=== PATIENT | male | born 1955 | race Caucasian/White ===

== ENCOUNTER 2021-04-01 05:52 | Inpatient (IN) ==
--- NOTE | 2021-03-18 15:57 | PAT Medication Instructions ---
Medication Instructions Date of Service March 18, 2021 Home Medications diltiazem HCl 90 mg tablet PO BID fluoxetine 40 mg capsule (Prozac) PO Q2D glipizide 5 mg tablet PO BID lisinopril 20 mg tablet PO QAM metformin 500 mg tablet PO BID Continue as directed fluoxetine 40 mg capsule (Prozac) PO Q2D DO NOT take the morning of surgery glipizide 5 mg tablet PO BID lisinopril 20 mg tablet PO QAM metformin 500 mg tablet PO BID Take morning of surgery With a small sip of water, OTHERWISE NOTHING TO EAT OR DRINK AFTER MIDNIGHT: diltiazem HCl 90 mg tablet PO BID Take evening before surgery diltiazem HCl 90 mg tablet PO BID glipizide 5 mg tablet PO BID metformin 500 mg tablet PO BID Other Notes If you have any questions please call us at [phone] or [phone] or [phone] or [phone]
--- NOTE | 2021-03-19 11:52 | Anesthesiology Consultation ---
Date of Service March 19, 2021 Assessment & Plan (1) Encounter for pre-operative examination: Chart Review Chart Review: Acceptable Risk for Surgery (pending surgeon ordered PCP clearance and preop Covid testing ) and Patient seen in Pre Admission Testing - Awaiting surgeon ordered PCP clearance 03/26/21 (will check on BP at appt). Also sent note to PCP regarding patient's kidney function; will await response - Check BSG AM DOS Per PAT appt on 03/19/21, patient denies any recent travel. No known Covid positive contacts or Covid related symptoms. No known Covid infection in the past 90 days. Pt is vaccinated for Covid. Preop Covid testing scheduled 03/28/21= will await results. Educated on importance of self quarantining, social distancing and wearing mask in public both for the patient after Covid testing done Teaching & Discussion Pre-Anesthesia Teaching/Discussion Notes: Instructed NPO after midnight before surgery,except medications with 15 cc of water. Medication instructions provided according to the [facility] guidelines. History Surgery Operation Date: 04/01/21 10:05 Proposed Procedures p L3-S1 Decompression/Fusion, Spinal Cord Monitoring - Ruel Sol DO Height/Weight Height: 6 ft Weight: 96.1 kg Allergies Allergy/AdvReac Type Severity Reaction Status Date / Time No Known Allergies Allergy Verified 03/18/21 15:09 Medications Home Medications Medication Instructions Recorded Confirmed Last Taken diltiazem HCl 90 mg tablet 90 mg PO BID 03/18/21 03/18/21 Unknown fluoxetine 40 mg capsule (Prozac) 40 mg PO Q2D 03/18/21 03/18/21 Unknown glipizide 5 mg tablet 2.5 mg PO BID 03/18/21 03/18/21 Unknown lisinopril 20 mg tablet 20 mg PO QAM 03/18/21 03/18/21 Unknown metformin 500 mg tablet 500 mg PO BID 03/18/21 03/18/21 Unknown Past Medical History Medical History Chronic back pain Depression Diabetes mellitus, type 2 Glucose well controlled Hypertension Exercise / Class Metabolic Activity III < 4 Walking/Shop/Light housework (one flight of stairs - no chest pain or SOB (has to go slow)) Past Surgical History Surgical History History of inguinal hernia repair History of lumbar spinal fusion x2 History of total right knee replacement (TKR) Past Anesthesia History No Hx of Anesthesia Complications and No Family Hx of Anesthesia Complications History of PONV No Hx of PONV and No Hx of Motion Sickness Social History Smoking Status: Current some day smoker tobacco type: cigars Smoking cigarettes per day: ocas Do You Dip or Chew Tobacco: Yes (Advised- 1 can per week ) Hx Alcohol Use: Yes Alcohol type: beer alcohol intake frequency: 0-2 drinks per day (3 beers/day) Hx Substance Use: No substance use type: does not use Review of Systems Snoring- no hx sleep study Patient denies chest pain, shortness of breath at rest, reflux, cough, wheezing, palpitations. No hx of seizures, stroke, IN. No hx of blood clots or blood transfusions Physical Exam Vital Signs VITALS BP 180/102 (pt asymptomatic- educated on warning signs of IN/CVA and to go to ER; has follow up clearance appt with PCP 03/26/21) P 77 TEMP 98.3 SP02 96% RESP 16 Constitutional no acute distress ENMT Mouth: no TMJ clicking Thyromental Distance: > or= 3.5 Finger Breadths (4.0) Mallampati Class: II Missing molars Neck + limited neck extension (significant ) Respiratory normal respiratory effort; no respiratory distress Auscultation: lungs clear to auscultation bilaterally; no wheezes Cardiovascular Rate/Rhythm: regular rate and regular rhythm Heart Sounds: no murmur Vessels: no carotid bruit Musculoskeletal Spine: no pain with cervical ROM Extremities: extremities normal to inspection Psychiatric Orientation: alert Lab Results Anesthesia Preop Results Results Anesthesia Widget: WBC 9.13 K/uL (4.8-10.8) 03/19/21 Hgb 16.8 g/dL (14.0-18.0) 03/19/21 Hct 48.6 % (42-52) 03/19/21 Plt 206 K/uL (130-400) 03/19/21 Na 136 mmol/L (136-145) 03/19/21 K 5.1 mmol/L (3.5-5.1) 03/19/21 Cl 105 mmol/L (98-107) 03/19/21 CO2 25 mmol/L (21-32) 03/19/21 BUN 20 mg/dl (7-18) H 03/19/21 Creat 1.75 mg/dl (0.6-1.4) H 03/19/21 Glucose Level 154 mg/dl (70-99) H 03/19/21 PT 10.5 Seconds (9.0-12.0) 03/19/21 PTT 26.8 Seconds (21.0-31.0) 03/19/21 INR 1.0 (0.9-1.1) 03/19/21 HA1c 8.9 % (4.5-5.6) H 03/19/21 Urine Color Dark Yellow 03/19/21 Urine Appearance Clear (Clear) 03/19/21 Urine pH 5.5 (4.5-7.5) 03/19/21 Urine Specific [place] 1.023 (1.000-1.030) 03/19/21 Urine Protein 3+ (Negative) H 03/19/21 Urine Glucose (UA) Trace (Negative) H 03/19/21 Urine Ketones 1+ (Negative) H 03/19/21 Urine Blood Trace (Negative) H 03/19/21 Urine Nitrite Positive (Negative) A 03/19/21 Urine Bilirubin 1+ (Negative) H 03/19/21 Urine Urobilinogen Negative (Negative) 03/19/21 Urine Leukocyte Esterase 1+ (Negative) H 03/19/21 Urine WBC (Auto) >30 /hpf (0-5) H 03/19/21 Urine RBC (Auto) 0-4 /hpf (0-4) 03/19/21 Urine Hyaline Casts (Auto) 5-10 /lpf (0-5) H 03/19/21 Urine Epithelial Cells (Auto) 5-10 /lpf (0-5) H 03/19/21 Urine Bacteria (Auto) 1+ (Negative) H 03/19/21 Urine Yeast Budding (None Prsent) A 03/19/21 Blood Type O Positive 03/19/21 Antibody Screen NEGATIVE 03/19/21 Lab Comments: Surgeon's office informed of abnormal UA and elevated Hgb A1C - will leave to surgeon's discretion how to proceed Testing Electrocardiogram Date: 03/19/21 Findings: + NSR @ (71 bpm) Left anterior fascicular block. Moderate voltage criteria for LVH, may be normal variant. Chest X-Ray Date: 03/19/21 Elevation of the left hemidiaphragm. Atelectasis or scarring at the left base.
[2021-04-01] MEDS ORDERED: ceFAZolin 2000MG 2,000 MG/15 ML SYR IV SCH (06:00)
[2021-04-01] MEDS ORDERED: ACETAMINOPHEN 500 MG TAB PO SCH (06:00)
[2021-04-01] MEDS ORDERED: GABAPENTIN 300 MG CAP PO SCH (06:00)
[2021-04-01] MEDS ORDERED: LR 15ML/HR IV SCH (06:00)
[2021-04-01] MEDS ORDERED: CeleBREX 200 MG CAP PO SCH (06:00)
[2021-04-01] MEDS ORDERED: fentaNYL citrate 100 MCG/2 ML VIAL ONE (06:52)
[2021-04-01] MEDS ORDERED: MIDAZOLAM HCL 1 MG/ML 2ML VIAL ONE (06:52)
[2021-04-01] MEDS ORDERED: BUPIVACAINE 0.5 % 5 MG/1 ML MPF 30ML VIAL ONE (06:57)
[2021-04-01] MEDS ORDERED: EPINEPHrine INJ 1 MG/ML AMP ONE (06:57)
[2021-04-01] MEDS ORDERED: KETAMINE 50 MG/5 ML SYRINGE ONE (06:58)
[2021-04-01] MEDS ORDERED: FLOSEAL HEMOSTATIC MATRIX 10ML TOP ONE (07:26)
[2021-04-01] MEDS ORDERED: ePHEDrine sulfate 50 MG/ML AMP IV PRN (07:27)
[2021-04-01] MEDS ORDERED: HYDROmorphone INJ 2 MG/ML SYR/VIAL IV PRN (07:27)
[2021-04-01] MEDS ORDERED: ONDANSETRON INJ 2 MG/ML 2 ML VIAL IV PRN ×2 (07:27→12:33)
[2021-04-01] MEDS ORDERED: fentaNYL citrate 100 MCG/2 ML VIAL IV PRN (07:27)
[2021-04-01] MEDS ORDERED: PROMETHAZINE HCL 6.25 MG in SODIUM CHLORIDE 0.9% 50 ML IV PRN (07:27)
[2021-04-01] MEDS ORDERED: ATROPINE SULFATE 0.1 MG/ML 10ML SYR IV PRN (07:27)
--- NOTE | 2021-04-01 07:29 | History & Physical Bridge Note ---
Date of Service April 01, 2021 History & Physical Bridge Note I have examined the patient, reviewed the History & Physical and in the interval since the performance of the History & Physical I have noted the following changes of clinical significance: no changes noted
--- NOTE | 2021-04-01 07:31 | History & Physical Report ---
Date of Service April 01, 2021 Assessment & Plan (1) Neurogenic claudication due to lumbar spinal stenosis: Admission and Anticipated Discharge Date Admission Date: L3-S1 decompression fusion History of Present Illness Chief Complaint: Back and bilateral leg pain Primary Care Provider: Eldon Hernandez This is a 65-year-old male who presents with chronic persistent back and bilateral leg pain. After failing course of nonoperative care is here for surgical invention. Allergies Allergy/AdvReac Type Severity Reaction Status Date / Time No Known Allergies Allergy Verified 04/01/21 06:19 Home Medications Medication Instructions Recorded Confirmed Type diltiazem HCl 90 mg tablet 90 mg PO BID 03/18/21 04/01/21 History fluoxetine 40 mg capsule (Prozac) 40 mg PO Q2D 03/18/21 04/01/21 History glipizide 5 mg tablet 2.5 mg PO BID 03/18/21 04/01/21 History lisinopril 20 mg tablet 20 mg PO QAM 03/18/21 04/01/21 History metformin 500 mg tablet 500 mg PO BID 03/18/21 04/01/21 History Past Med/Surg History Medical History Chronic back pain Depression Diabetes mellitus, type 2 Glucose well controlled Hypertension Surgical History History of inguinal hernia repair History of lumbar spinal fusion x2 History of total right knee replacement (TKR) Social History Smoking Status: Current some day smoker Cigarettes Per Day: ocas; Second Hand Exposure: No; Do You Dip or Chew Tobacco: Yes (Advised- 1 can per week ); Tobacco Cessation Education Requested by Patient: No Hx Alcohol Use: Yes Alcohol type: beer Hx Substance Use: No Preferred Language: Portuguese Communication Ability: Effective Customer Relations Coordinator Required: No Beliefs That Will Affect Care: None Current Living Situation: Spouse Other Information That Helps Us Care for You: No Feels Safe at Home: Yes Safety Concerns: Feels Safe At This Time Physical Exam Physical Exam: Patient is alert and oriented Heart regular in rhythm Lungs clear to auscultation Results & Data ([facility]) Vital Signs (Past 12 Hours) Vital Signs Temp Pulse Resp BP Pulse Ox 04/01/21 06:24 36.6 C 76 20 171/109 H 95
[2021-04-01] MEDS ORDERED: HYDROmorphone INJ 2 MG/ML SYR/VIAL ONE (08:01)
[2021-04-01] MEDS ORDERED: ALBUMIN HUMAN 5% 12.5 GM/250 ML VIAL IV ONE (08:12)
[2021-04-01] MEDS ORDERED: ONDANSETRON INJ 2 MG/ML 2 ML VIAL ONE (08:36)
[2021-04-01] MEDS ORDERED: GLYCOPYRROLATE 0.2 MG/ML VIAL ONE (08:36)
[2021-04-01] MEDS ORDERED: ePHEDrine sulfate 50 MG/ML SYR ONE (08:36)
[2021-04-01] MEDS ORDERED: PROPOFOL IV EMULSION 10 MG/ML 20 ML VIAL IV ONE (08:36)
[2021-04-01] MEDS ORDERED: LIDOCAINE 2% 2 ML VIAL/AMP(20MG/ML) INFIL ONE (08:36)
[2021-04-01] MEDS ORDERED: PHENYLEPHRINE 100MCG/ML 5ML SYR ONE (08:36)
[2021-04-01] MEDS ORDERED: NEOSTIGMINE METHYLSULFATE 1 MG/ML 10ML VIAL ONE (08:36)
[2021-04-01] MEDS ORDERED: LARYING-O-JET KIT (LTA) ONE (08:36)
--- NOTE | 2021-04-01 10:03 | Operative Report ---
Post Operative Report Pre & Post Diagnosis Operation Date: 04/01/21 07:45 Pre-Op Diagnosis: Spinal Stenosis, Lumbar Region with Neurogenic Claudication Post-Op Diagnosis: Spinal Stenosis, Lumbar Region with Neurogenic Claudication I identified the patient and participated in the time-out.: Yes Procedure Operation Date: 04/01/21 07:45 Actual Procedures #1 revision decompression with bilateral medial facetectomy foraminotomies L2-3, L3-4, L4-5 and L5-S1. #2 posterior spinal fusion L3-4, L4-5 L5-S1. #3 placement posterior segmental instrumentation L3-S1. #4 interbody fusion L4-L5 with #5 placement peek cage 10 x 26 mm at L4-L5. #6 placement locally harvested morselized autograft in the posterior lateral gutters. #7 placement infuse collagen sponge, master graft in the posterior lateral gutters and I factor in the interbody space. Surgeon Ruel Sol, Community Support Associate Winifred Marie Estimated Blood Loss 350 Findings Consistent with Post-Op Diagnosis Specimens None Indications This is a 65-year-old male who presents with above-mentioned diagnosis after failing extensive course of nonoperative care is here for surgical intervention. Description of Procedure Patient was met with identified informed consent obtained. Patient was then taken to the operative suite underwent a patient placed in a prone position the Dexter table on top of the Janusz frame. All bony prominences well-padded eyes inspected to ensure no external pressure placed upon the. This point the lumbar spine was prepped and draped in a normal sterile fashion. Sharp dissection with the assistance of Bovie cautery was performed down to and exposing the lamina and transverse processes of L3-L4-L5 and the sacral ala bilaterally. From caudal to cephalad fashion revision complete laminectomy of L5 L4 L3 and partial laminectomy of L2 was performed including bilateral medial facetectomies and foraminotomies addressing severe spinal stenosis. Pedicle screws were then placed in L3-L4-L5 and S1 levels bilaterally with assistance of fluoroscopy and the properly sized trinh placed. By way of a transforamen approach on the left complete discectomy of L4-L5 was performed endplates curetted to subcortical being bone and a 10 x 26 mm peek cage filled with I factor tapped in position. The rods were then locked in final position bilaterally. The transverse processes of L3-L4-L5 and the sacral ala burred to subcortical bleeding bone. Infuse collagen sponge master graft local autograft was placed in the posterior gutters. 15 round KANG drain inserted. The incision was then closed with 1 Vicryl in the fascia 2-0 Vicryl subcutaneously and 4 Monocryl for final skin c losure. Steri-Strip sterile dressings placed. Patient waken taken to PACU stable condition. Please note spinal cord monitoring was utilized at the procedure no changes noted. Lastly Winifred Marie was present at the entire procedure and all the patient positioning complex portions of the surgery and final skin closure. I attest to the content of the Intraoperative Record and any orders documented therein. Any exceptions are noted below.
--- NOTE | 2021-04-01 10:13 | Fluoroscopy Report ---
FL lumbar spine 2-3V CLINICAL HISTORY: L3-S1 DECOMPRESSION/FUSION/INTERBODY COMPARISON STUDY: None. FLUOROSCOPY TIME: 32 seconds. FINDINGS: 2 fluoroscopic spot images of the lumbar spine demonstrate posterior decompression fusion f rom L3 through S1 with pedicle screws and rods. The hardware appears intact. IMPRESSION: Fluoroscopy provided for L3-S1 posterior decompression and fusion ACT 112: Negative or not required by law. Electronically signed by: Jose Downs M.D. 04/01/2021 10:11 AM
--- NOTE | 2021-04-01 11:11 | Anesthesiology Progress Note ---
Date of Service April 01, 2021 Anesthesia Post Procedure Vital Signs Vital Signs: Temp Pulse Pulse Resp BP BP Pulse Ox 04/01/21 11:10 84 14 131/93 94 04/01/21 11:00 81 15 127/99 94 04/01/21 10:50 82 17 181/104 H 91 04/01/21 10:40 87 14 168/129 H 165/107 H 96 04/01/21 10:30 90 14 149/111 H 93 04/01/21 10:22 36.4 C L 90 16 117/61 97 04/01/21 06:24 36.6 C 76 20 171/109 H 95 Transfer of Care Handoff Completed per policy Notes Mental Status: alert / awake / arousable Patient Amnestic to Procedure: Yes Nausea / Vomiting: adequately controlled Pain: adequately controlled Airway Patency, RR, SpO2: stable & adequate BP & HR: stable & adequate Hydration State: stable & adequate Anesthetic Complications: no major complications apparent
[2021-04-01] MEDS ORDERED: HYDROCODONE/ACETAMINOPHEN 7.5/325MG TAB PO PRN (12:33)
[2021-04-01] MEDS ORDERED: hydrOXYzine HCl 25 MG TAB PO PRN (12:33)
[2021-04-01] MEDS ORDERED: oxyCODONE HCL IR 5 MG TAB (IMMEDIATE RELEASE) PO PRN (12:33)
[2021-04-01] MEDS ORDERED: PROMETHAZINE HCL 12.5 MG in SODIUM CHLORIDE 0.9% 50 ML IV PRN (12:33)
[2021-04-01] MEDS ORDERED: DO NOT ADMINISTER PNEUMOCOCCAL VACCINE PRN (12:33)
[2021-04-01] MEDS ORDERED: DO NOT ADMINISTER FLU VACCINE PRN (12:33)
[2021-04-01] MEDS ORDERED: MAGNESIUM HYDROXIDE SUSP 30 ML UDC PO PRN (12:33)
[2021-04-01] MEDS ORDERED: LORazepam 0.5 MG/1 ML VIAL IV PRN (12:33)
[2021-04-01] MEDS ORDERED: HYDROmorphone INJ 1 MG/ML SYRINGE IV PRN (12:33)
[2021-04-01] MEDS ORDERED: bisacodyL 10 MG SUPP PR PRN (12:33)
[2021-04-01] MEDS ORDERED: ALUMINUM/MAGNESIUM SUSP 30 ML UDC PO PRN (12:33)
[2021-04-01] MEDS ORDERED: HYDROmorphone INJ 0.5 MG/0.5 ML SYR IV PRN (12:33)
[2021-04-01] MEDS ORDERED: NALOXONE HCL 0.4 MG/1 ML VIAL/CARP IV PRN (12:33)
[2021-04-01] MEDS ORDERED: ONDANSETRON 4 MG OD TAB PO PRN (12:33)
[2021-04-01] MEDS ORDERED: diphenhydrAMINE Capsule 25 MG CAP PO PRN (12:33)
[2021-04-01] MEDS ORDERED: FAMOTIDINE 20 MG TAB PO PRN (12:33)
[2021-04-01] MEDS ORDERED: PHARMACY GLYCEMIC MGMT CONSULT PRN (12:33)
[2021-04-01] MEDS ORDERED: SOD PHOSPHATE/SOD BIPHOSPHATE ENEMA 132 ML BTL PR PRN (12:33)
[2021-04-01] MEDS ORDERED: HYDROCODONE/ACETAMOPHEN 5/325MG TAB PO PRN (12:33)
[2021-04-01] MEDS ORDERED: METOCLOPRAMIDE HCL INJ 5 MG/ML 2 ML VIAL IV PRN (12:33)
[2021-04-01] MEDS ORDERED: ACETAMINOPHEN 1,000 MG/100 ML VIAL IV PRN (12:33)
--- NOTE | 2021-04-01 12:56 | Hospitalist Consultation ---
Date of Consultation April 01, 2021 Assessment & Plan (1) S/P spinal surgery: This is a 65yo M with a PMH of DM II, depression, HTN and other medical problems listed below who is POD#0 s/p revision decompression with bilateral medial facetectomy foraminotomies L2-3, L3-4, L4-5 and L5-S1 and posterior spinal fusion L3-4, L4-5 L5-S1 by Dr. Sol. POD#0 s/p revision decompression with bilateral medial facetectomy foraminotomies L2-3, L3-4, L4-5 and L5-S1 and posterior spinal fusion L3-4, L4-5 L5-S1 by Dr. Sol Per ortho for pain control, wound care, anticoagulation and activities Monitor H&H (pre-op hgb 16.8, EBL 350ml) Continue incentive spirometry, PT/OT when appropriate (2) Diabetes mellitus, type 2: A1c pending for AM Hold home agents SSI while in-patient Glycemic consult placed by primary service BSG AC HS (3) Hypertension: BP 126/82 Continue diltiazem, lisinopril (4) Alcohol use: Endorses 3-4 beers nightly, last drink yesterday evening Fine tremor of bilateral hands noted on exam Alcohol withdrawal precautions ordered, IV ativan PRN, at risk protocol (5) Depression: Continue Prozac PCP: Dr. Hernandez ([place]) Dispo: Per orthopedic service Patient seen in collaboration with Dr. Barrios. Please see addendum. Thank you for this consultation. We will follow the patient with you during their hospital stay. You can reach a member of the [facility] Hospitalist Team 01/03 via [employer] Text @ "[facility] Hospitalist" role. Supervising Physician Co-Signing Physician Notes Attending Addendum: delayed entry date of service noted above care coordinated with BENJIE Corado please refer to her notes for full details, I agree with her notes patient seen and examined, records reviewed by myself as well on exam, patient seen resting in bed, sitting up states he feels ok overall stood up and walked at the bedside, no issues no chest pain, dyspnea, palpitations, dizziness no other symptoms VS noted and reviewed oriented x3 , not in distress, speaks in sentences with no effort nor accessory muscle use normal rate, regular rhythm, no murmurs clear breath sounds bilaterally non distended, soft, nontender back: dressing in place, no bleeding, discharge drain in place: minimal sanguinous output no bipedal edema, erythema, warmth no neuro deficits ASSESSMENT AND PLAN s/p Back Surgery - (+) hyperglycemia mgt noted below DM 2 - insulin sliding scale - Pharm Glycemic consult HTN - continue usual meds Alcohol Use - PRN Ativan other diagnoses and plan of care as per BENJIE Corado's notes Gregorio Barrios MD History of Present Illness Reason for Consultation: post op medical mgmt Attending Physician: Ruel Sol DO History of Present Illness This is a 65yo M with a PMH of DM II, depression, HTN and other medical problems listed below who is POD#0 s/p revision decompression with bilateral medial facetectomy foraminotomies L2-3, L3-4, L4-5 and L5-S1 and posterior spinal fusion L3-4, L4-5 L5-S1 by Dr. Sol. Feeling well postoperatively. No surgical site pain at this time. Has not yet tried clear liquids. Denies any fever, chills,lightheadedness, headache, chest pain, shortness of breath, nausea, vomiting, abdominal pain, dysuria, diarrhea or constipation. Endorses intermittent cigar use and drinks 3-4 beers nightly. Last drink last evening. Does not over the last day he does not drink. Denies any issues with alcohol withdrawal in the past. Follows with Dr. Hernandez in [place] for primary care. Allergies Allergy/AdvReac Type Severity Reaction Status Date / Time No Known Allergies Allergy Verified 04/01/21 06:19 Home Medications Medication Instructions Recorded Confirmed Type diltiazem HCl 90 mg tablet 90 mg PO BID 03/18/21 04/01/21 History fluoxetine 40 mg capsule (Prozac) 40 mg PO DAILY 03/18/21 04/01/21 History glipizide 5 mg tablet 2.5 mg PO BID 03/18/21 04/01/21 History lisinopril 20 mg tablet 20 mg PO QAM 03/18/21 04/01/21 History metformin 500 mg tablet 500 mg PO BID 03/18/21 04/01/21 History oxycodone 5 mg tablet 5 mg PO Q6H PRN #30 tab 04/02/21 Rx tramadol 50 mg tablet 50 mg PO Q6H PRN #30 tab 04/02/21 Rx Patient History Medical History (Updated 04/02/21 @ 09:18 by Mckenna Jewell PA-C) Depression Diabetes mellitus, type 2 Glucose well controlled Hypertension Surgical History (Updated 04/01/21 @ 13:48 by Sierra Corado PA-C) History of inguinal hernia repair History of lumbar spinal fusion x2 History of total right knee replacement (TKR) Family History Other No family history of cardiovascular disease No family history of diabetes mellitus Social History (Updated 04/01/21 @ 13:50 by Sierra Corado PA-C) Smoking Status: Current some day smoker Tobacco Type: Cigars Cigarettes Per Day: ocas; Second Hand Exposure: No; Do You Dip or Chew Tobacco: Yes (Advised- 1 can per week ); Tobacco Cessation Education Requested by Patient: No Hx Alcohol Use: Yes (3-4 nightly) Alcohol type: beer Alcohol Intake Frequency: 4 or More x per/Week Hx Substance Use: No Preferred Language: Chadian Communication Ability: Effective Production Sanitizer Required: No Beliefs That Will Affect Care: None marital status: Current Living Situation: Spouse Other Information That Helps Us Care for You: No Feels Safe at Home: Yes Safety Concerns: Feels Safe At This Time Assistive Devices: Glasses Review of Systems Review of Systems: At least ten systems reviewed and negative except as noted in the HPI. Physical Exam Physical Exam: General Appearance: WD/WN, vitals as above, NAD, sitting up in bed, pleasant, conversing easily Head: normocephalic, atraumatic Eyes: normal inspection, PERRL, conjunctivae normal, anicteric sclerae ENT: external ear and nose normal, oropharynx normal Neck: normal visual inspection, trachea midline, no thyromegaly Respiratory: normal respiratory effort, lungs clear to auscultation, no wheeze, rales, rhonchi. No accessory muscle use Cardiovascular: regular rate, rhythm, no murmur, normal peripheral pulses, no BLE edema. Vessels: no JVD Abdomen/GI: normal bowel sounds, soft, nontender, no hepatosplenomegaly Extremities/Musculoskeletal: + Lumbar surgical dressing c/d/i. KANG drain visualized. No cyanosis or clubbing, extremities motor strength 5/5 Neurologic: PERRL, EOMI, CN's II-XI intact bilaterally and moves all extremities. + Fine tremor bilateral hands noted Psychiatric: A+Ox3, euthymic affect Skin: no rashes, normal color, warm/dry Results & Data Results & Data ([facility]) Vital Signs (Past 12 Hours) Vital Signs Temp Pulse Pulse Resp BP BP Pulse Ox 04/01/21 12:50 86 16 126/82 93 04/01/21 12:25 82 16 136/84 93 04/01/21 11:55 36.6 C 85 19 124/85 94 04/01/21 11:35 36.4 C L 81 15 135/82 95 04/01/21 11:20 81 14 129/92 93 04/01/21 11:10 84 14 131/93 94 04/01/21 11:00 81 15 127/99 94 04/01/21 10:50 82 17 181/104 H 91 04/01/21 10:40 87 14 168/129 H 165/107 H 96 04/01/21 10:30 90 14 149/111 H 93 04/01/21 10:22 36.4 C L 90 16 117/61 97 04/01/21 06:24 36.6 C 76 20 171/109 H 95 Laboratory Results Short CBC 04/01/21 04/01/21 04/01/21 Range/Units 06:23 06:40 10:23 POC Glucose 223 H 249 H (70-99) mg/dl COVID-19 Eval Order SARS-CoV-2 (PCR) (Negative) Blood Type O Positive Antibody Screen NEGATIVE Crossmatch See Detail 04/01/21 04/01/21 04/01/21 Range/Units 12:12 Unknown Unknown POC Glucose 255 H (70-99) mg/dl COVID-19 Eval Order Covid19 at [facility] SARS-CoV-2 (PCR) NEGATIVE (Negative) Blood Type Antibody Screen Crossmatch Diagnostic Findings Lumbar Spine X-Ray 04/01/21 07:45 [place] lumbar spine 2-3V CLINICAL HISTORY: L3-S1 DECOMPRESSION/FUSION/INTERBODY COMPARISON STUDY: None. FLUOROSCOPY TIME: 32 seconds. FINDINGS: 2 fluoroscopic spot images of the lumbar spine demonstrate posterior decompression fusion from L3 through S1 with pedicle screws and rods. The hardware appears intact. IMPRESSION: Fluoroscopy provided for L3-S1 posterior decompression and fusion ACT 112: Negative or not required by law. Electronically signed by: Jose Downs M.D. 04/01/2021 10:11 AM
[2021-04-01] MEDS: SODIUM CHLORIDE 0.9% 1000ML 1,000 ML IV SCH ×2 (13:20→23:14)
[2021-04-01] MEDS: KETOROLAC TROMETHAMINE 15 MG/ML VIAL IV SCH ×2 (13:21→18:00)
[2021-04-01] MEDS ORDERED: INSULIN GLARGINE SOLOSTAR 100 UNITS/ML 3 ML PEN SC ONE (13:30)
[2021-04-01] MEDS ORDERED: LORazepam 1 MG/2 ML VIAL IV PRN (13:45)
--- NOTE | 2021-04-01 13:53 | Pharmacy Report ---
Pharmacy Glycemic Short Note 2 - Date of Service April 01, 2021 - Glycemic Short BSG Results (Last 24 hours): 04/01/21 04/01/21 04/01/21 06:23 10:23 12:12 POC Glucose 223 H 249 H 255 H OUTPATIENT ANTIDIABETIC REGIMEN: * Metformin 500 mg PO BIDM * Glipizide 2.5 mg PO BIDM * HbA1c = 8.9% (03/19/21) ASSESSMENT: * 65 yo M admitted status post spinal decompression/fusion. Pharmacy has been consulted postoperatively to assist with inpatient glycemic management. Patient is ordered a type 2 diabetic diet post op. As far as I can tell, no perioperative steroids were administered. * Preoperative BSG was 223 mg/dL. Postoperative BSGs were 249 and 255 mg/dL. * Will target a tighter goal range to help with wound healing and prevent postoperative infection. * Starting Novolog based on weight/stress of three. Adding overnight checks for the first night only. * Lantus will be given based on a weight and stress of two to three. Will add a scale this evening for hyperglycemia. PLAN FOR INPATIENT GLYCEMIC CONTROL: * Hold outpatient oral diabetes medications * Basal insulin * Lantus 20 units SC x 1 * Lantus 0-15 units SC BID (see eMAR for more details) * Bolus insulin * NovoLog per scale ACHS or Q6hrs while NPO * Goal Range: Low 110 mg/dL - High 140 mg/dL * Correction Factor: 15 mg/dL/unit * Nutritional / Prandial insulin per carb ratio of 1 unit per 6 grams CHO consumed PLAN FOR DISCHARGE: * HbA1c from earlier this month was 8.9% which is above the goal of less than 7% based on this patient's age and comorbidities. * Recommend increasing Metformin by 500 mg per week until target dose of 1000 mg PO BID is achieved. * Recommend increasing Glipizide to 2.5 mg per week until dose of 5 mg PO BID is achieve. * Continue with lifestyle modifications as well.
[2021-04-01] MEDS: INSULIN ASPART 100 UNITS/ML 3 ML PEN SC SCH ×3 (15:14→21:29)
[2021-04-01] MEDS: ceFAZolin 2000MG 2,000 MG/15 ML SYR IV SCH (15:59)
[2021-04-01] MEDS ORDERED: glipiZIDE 5 MG TAB PO SCH (21:00)
[2021-04-01] MEDS: DOCUSATE SODIUM/SENNA 50/8.6MG TAB PO SCH (21:28)
[2021-04-01] MEDS: dilTIAZem HCL 30 MG TAB PO SCH (21:28)
[2021-04-01] MEDS: INSULIN GLARGINE SOLOSTAR 100 UNITS/ML 3 ML PEN SC SCH (21:29)
[2021-04-02] MEDS: ceFAZolin 2000MG 2,000 MG/15 ML SYR IV SCH (00:06)
[2021-04-02] MEDS: KETOROLAC TROMETHAMINE 15 MG/ML VIAL IV SCH ×2 (00:06→06:12)
[2021-04-02] MEDS: INSULIN ASPART 100 UNITS/ML 3 ML PEN SC SCH ×6 (00:12→21:17)
[2021-04-02] MEDS: POLYETHYLENE (MIRALAX) 17 GM PACK PO SCH ×3 (06:12→17:43)
[2021-04-02 06:42] LABS: Basophils # (auto) 0.03 K/uL (0-0.2); Basophils % (auto) 0.3 %; Eosinophils # (auto) 0.35 K/uL (0-0.5); Eosinophils % (auto) 3.4 %; Hematocrit (blood only) 36.8 % (42-52); Hemoglobin 12.2 g/dL (14.0-18.0); Immature Granulocytes # (auto) 0.03 K/uL (0.00-0.02); Immature Granulocytes % (auto) 0.3 %; Lymphocytes # (auto) 1.63 K/uL (1.2-3.4); Lymphocytes % (auto) 15.9 %; Mean Corpuscular Hemoglobin 30.3 pg (25-34); Mean Corpuscular Hgb Conc 33.2 g/dL (32-36); Mean Corpuscular Volume 91.5 fL (80-100); Mean Platelet Volume 11.2 fL (7.4-10.4); Monocytes % (auto) 12.7 %; Neutrophils % (auto) 67.4 %; Platelet Count 156 K/uL (130-400); RDW Coefficient of Variation 14.7 % (11.5-14.5); RDW Standard Deviation 49.1 fL (36.4-46.3); Red Blood Count 4.02 M/uL (4.7-6.1); White Blood Count 10.24 K/uL (4.8-10.8)
[2021-04-02 07:04] LABS: BUN Creatinine Ratio 9.2 (10-20); Calcium 8.4 mg/dl (8.5-10.1); Creatinine Clr Calc Pharmacy 28.5 ml/min; Est GFR (African American) 23.7 ml/min; Est GFR (Non-African American) 20.4 ml/min; Potassium 4.8 mmol/L (3.5-5.1)
[2021-04-02 07:46] LABS: Estimated Average Glucose 197 mg/dl; Hemoglobin A1C 8.5 % (4.5-5.6)
[2021-04-02] MEDS: traMADol HCL 50 MG TABLET PO PRN ×3 (08:06→21:22)
[2021-04-02] MEDS: dilTIAZem HCL 30 MG TAB PO SCH ×2 (08:07→21:14)
[2021-04-02] MEDS: FLUoxetine HCL 20 MG CAP PO SCH (08:52)
[2021-04-02] MEDS: INSULIN GLARGINE SOLOSTAR 100 UNITS/ML 3 ML PEN SC SCH ×2 (08:53→21:18)
[2021-04-02] MEDS ORDERED: lisinopril 20 MG TAB PO SCH (09:00)
[2021-04-02] MEDS: SODIUM CHLORIDE 0.9% 1000ML 1,000 ML IV SCH ×3 (09:05→17:40)
--- NOTE | 2021-04-02 09:17 | Pharmacy Report ---
Pharmacy Glycemic Short Note 2 - Date of Service April 02, 2021 - Glycemic Short BSG Results (Last 24 hours): 04/01/21 04/01/21 04/01/21 10:23 12:12 17:05 Glucose POC Glucose 249 H 255 H 276 H 04/01/21 04/02/21 04/02/21 20:38 00:11 03:53 Glucose POC Glucose 292 H 222 H 157 H 04/02/21 04/02/21 05:52 08:16 Glucose 138 H POC Glucose 178 H OUTPATIENT ANTIDIABETIC REGIMEN: * Metformin 500 mg PO BIDM * Glipizide 2.5 mg PO BIDM * HbA1c = 8.9% (03/19/21) ASSESSMENT: 04/02: * Daniel received a total of 75 units of insulin yesterday postoperatively. * 35 units basal + 40 units bolus * BSGs were elevated: [phone] mg/dL * Fasting BSG was improved but still above goal range at 178 mg/dL this AM * Will increase basal scale by 15-30% today pending BSGs * No improvement in postprandial BSGs last evening. * Therefore, will tighten carb ratio this morning 04/01: * 65 yo M admitted status post spinal decompression/fusion. Pharmacy has been consulted postoperatively to assist with inpatient glycemic management. Patient is ordered a type 2 diabetic diet post op. As far as I can tell, no perioperative steroids were administered. * Preoperative BSG was 223 mg/dL. Postoperative BSGs were 249 and 255 mg/dL. * Will target a tighter goal range to help with wound healing and prevent postoperative infection. * Starting Novolog based on weight/stress of three. Adding overnight checks for the first night only. * Lantus will be given based on a weight and stress of two to three. Will add a scale this evening for hyperglycemia. PLAN FOR INPATIENT GLYCEMIC CONTROL: * Hold outpatient oral diabetes medications * Basal insulin - increased * Lantus 15-25 units SC BID (see eMAR for more details) * Bolus insulin - tightened CR * NovoLog per scale ACHS or Q6hrs while NPO * Goal Range: Low 110 mg/dL - High 140 mg/dL * Correction Factor: 15 mg/dL/unit * Nutritional / Prandial insulin per carb ratio of 1 unit per 5 grams CHO consumed PLAN FOR DISCHARGE: * HbA1c from earlier this month was 8.9% which is above the goal of less than 7% based on this patient's age and comorbidities. * Recommend increasing Metformin by 500 mg per week until target dose of 1000 mg PO BID is achieved. * Recommend increasing Glipizide to 2.5 mg per week until dose of 5 mg PO BID is achieve. * Continue with lifestyle modifications as well.
--- NOTE | 2021-04-02 09:22 | Hospitalist Progress Note ---
Date of Service April 02, 2021 Assessment & Plan (1) S/P spinal surgery: Plan: This is a 65yo M with a PMH of DM II, depression, HTN and other medical problems listed below who is POD#1 s/p revision decompression with bilateral medial facetectomy foraminotomies L2-3, L3-4, L4-5 and L5-S1 and posterior spinal fusion L3-4, L4-5 L5-S1 [address] Dr[address] Sol. POD#1 s/p revision decompression with bilateral medial facetectomy foraminotomies L2-3, L3-4, L4-5 and L5-S1 and posterior spinal fusion L3-4, L4-5 L5-S1 by Dr[address] Sol Per ortho for pain control, wound care, anticoagulation and activities Monitor H&H (pre-op hgb 16.8, EBL 350ml) Continue incentive spirometry, PT/OT when appropriate (2) Acute worsening of stage 3 chronic kidney disease: Plan: pre op cr 1.75, no baseline to compare but per PCP CKD 3 in setting of T2Dm/HTn POD #1, creatinine 3.03, likely intrarenal, possibly in setting of ATN from toradol (had 4 doses yesterday) blood pressure has remained adequate pre, post and intraoperatively, arthur cath in place UOP 0.17/kg/hr, monitor qshift resume IVF @ 125cc/hr monitor UOP, repeat bmp @ 1700 obtain urine studies avoid nephrotoxic agents, place lisinopril on hold (3) Acute blood loss as cause of postoperative anemia: Plan: ebl 350ml; KANG drain 630ml pre op hgb 16.8, today 12.2 monitor, no need for transfusion at this time (4) Diabetes mellitus, type 2: Plan: A1C, 8.5 Hold home agents SSI while in-patient Glycemic consult placed by primary service BSG AC HS (5) Hypertension: Plan: BP 160/94, before a.m. meds possibly in setting of pain Continue diltiazem Hold lisinopril 2/2 to KALPESH (6) Alcohol use: Plan: Endorses 3-4 beers nightly, last drink yesterday evening Fine tremor of bilateral hands noted on exam Alcohol withdrawal precautions ordered, IV ativan PRN, at risk protocol (7) Depression: Plan: Continue Prozac PCP: Dr. Shedaddy Thomas) Dispo: Per orthopedic service Patient seen in collaboration with Dr. Rice, Please see addendum. Thank you for this consultation. We will follow the patient with you during their hospital stay. You can reach a member of the [facility] Hospitalist Team 01/03 via [place] Text @ "[facility] Hospitalist" role. Admission and Anticipated Discharge Date Admission Date: April 01, 2021 Supervising Physician Co-Signing Physician Notes Patient is seen and examined at bedside. Back pain is controlled. Sitting in chair with no distress during my encounter. States having some instability with ambulation. On exam patient is moderately built and nourished, no apparent distress, normocephalic atraumatic, lungs are clear to auscultation, S1-S2, no murmur, no peripheral edema, abdomen soft, nontender, normal bowel sounds, Back- surgical site in dressing, alert, awake, oriented, grossly moves all extremities. Noted to have acute kidney injury with creatinine elevated at 3.03. Avoid nephrotoxic agents. Hold lisinopril for now. Agree with IV fluids. Consider nephrology evaluation if needed. Postoperative management as per primary team. Alcohol use disorder. Monitor for withdrawal. Start on thiamine, folic acid. I personally reviewed the record. Patient is interviewed and examined at bedside. Patient's care is coordinated with Mckenna Sosa. Please refer to the documentation above for details of patient's presentation and for discussion of other issues. Subjective Patient was seen and examined in room 310. Follow-up lumbar surgery POD #1. He offers no acute complaints and otherwise feels well this morning. He denies fever, chills, sweats, lightheadedness, dizziness, chest pain, shortness of breath, nausea, vomiting, abdominal pain. He has not yet passed flatus. He tolerated breakfast this morning. He is anxious to get up and moving. Review of Systems Review of Systems: All systems reviewed & are unremarkable except as noted in HPI & below Physical Exam Physical Exam: Gen: WD/WN, NAD, A&O x3 HEENT: Normocephalic, atraumatic, conjunctivae moist, sclerae anicteric, mucous membranes moist. Lung: Clear to Auscultation bilaterally, no wheezes/rales/rhonchi Heart: Regular rate, regular rhythm, no murmurs, rubs, or gallops Abdomen: Soft, NT, ND +BS x 4 Extremities: No edema, lumbar dressing CDI, KANG drain with serosanguineous drainage Skin: Warm, no rash, negative turgor. Results & Data Results & Data ([facility]) Vital Signs (Past 12 Hours) Vital Signs Temp Pulse Resp BP Pulse Ox 04/02/21 07:52 37 C 82 18 160/94 H 96 04/02/21 03:56 36.5 C 77 16 129/79 92 04/01/21 23:23 36.6 C 73 16 150/92 H 93 Laboratory Results Short CBC 04/02/21 04/02/21 Range/Units 05:52 05:52 WBC 10.24 (4.8-10.8) K/uL Hgb 12.2 L (14.0-18.0) g/dL Hct 36.8 L (42-52) % Plt Count 156 (130-400) K/uL Creatinine 3.03 H (0.6-1.4) mg/dl BMP 04/02/21 05:52 Sodium 132 L Potassium 4.8 Chloride 99 Carbon Dioxide 25 BUN 28 H Creatinine 3.03 H Glucose 138 H Calcium 8.4 L Medications Administered Medication List Diltiazem HCl (Diltiazem Hcl 30 Mg Tab) 90 mg PO BID [facility] Stop: 05/01/21 20:59 Last Admin: 04/02/21 08:07 Dose: 90 mg Documented by: [id number] Admin: 04/01/21 21:28 Dose: 90 mg Documented by: [id number] Fluoxetine HCl (Fluoxetine Hcl 20 Mg Cap) 40 mg PO DAILY [facility] Stop: 05/02/21 08:59 Last Admin: 04/02/21 08:52 Dose: 40 mg Documented by: [id number] Insulin Aspart (Insulin Aspart 100 Units/Ml 3 Ml Pen) 0 units SC [facility]; Protocol Stop: 05/01/21 13:29 Last Admin: 04/02/21 08:53 Dose: 14 units Documented by: [id number] Cosigned by: [id number] Admin: 04/01/21 21:29 Dose: 11 units Documented by: [id number] Cosigned by: [id number] Admin: 04/01/21 17:58 Dose: 15 units Documented by: [id number] Cosigned by: [id number] Admin: 04/01/21 15:14 Dose: 8 units Documented by: [id number] Cosigned by: [id number] Insulin Glargine (Insulin Glargine Solostar 100 Units/Ml 3 Ml Pen) 0 units SC BID [facility]; Protocol Stop: 05/01/21 20:59 Last Admin: 04/02/21 08:53 Dose: 20 units Documented by: [id number] Cosigned by: [id number] Admin: 04/01/21 21:29 Dose: 15 units Documented by: [id number] Cosigned by: [id number] Polyethylene Glycol (Polyethylene (Miralax) 17 Gm Pack) 17 gm PO Q6 [facility] Stop: 05/02/21 05:59 Last Admin: 04/02/21 06:12 Dose: 17 gm Documented by: [id number] Senna/Docusate Sodium (Docusate Sodium/Senna 50/8.6mg Tab) 2 tab PO HS [facility] Stop: 05/01/21 20:59 Last Admin: 04/01/21 21:28 Dose: 2 tab Documented by: [id number] Tramadol HCl (Tramadol Hcl 50 Mg Tablet) 50 - 100 mg PO Q4H PRN PRN Reason: Moderate-Severe pain & Pre PT Stop: 05/01/21 12:32 Last Admin: 04/02/21 08:06 Dose: 100 mg Documented by: [id number] Discontinued Medications Acetaminophen (Acetaminophen 500 Mg Tab) 1,000 mg PO PREOP [facility] Stop: 04/01/21 18:00 Last Admin: 04/01/21 07:01 Dose: 1,000 mg Documented by: [id number] Bupivacaine HCl (Bupivacaine 0.5 % 5 Mg/1 Ml Mpf 30ml Vial) Confirm Administered Dose 30 ml .ROUTE .STK-MED ONE Stop: 04/01/21 06:58 Last Admin: 04/01/21 08:07 Dose: 30 ml Documented by: [id number] Cefazolin Sodium (Cefazolin 250 Mg/Ml 1 Gm Vial) Confirm Administered Dose 1,000 mg .ROUTE .STK-MED ONE Stop: 04/01/21 06:58 Last Admin: 04/01/21 09:17 Dose: 1,000 mg Documented by: [id number] Celecoxib (Celebrex 200 Mg Cap) 200 mg PO PREOP [facility] Stop: 04/01/21 18:00 Last Admin: 04/01/21 07:01 Dose: 200 mg Documented by: [id number] Epinephrine HCl (Epinephrine Inj 1 Mg/Ml Amp) Confirm Administered Dose 1 mg .ROUTE .STK-MED ONE Stop: 04/01/21 06:58 Last Admin: 04/01/21 08:07 Dose: 0.15 mg Documented by: [id number] Gabapentin (Gabapentin 300 Mg Cap) 300 mg PO PREOP [facility] Stop: 04/01/21 18:00 Last Admin: 04/01/21 07:01 Dose: 300 mg Documented by: [id number] Lactated Ringer's (Lr) 1,000 mls @ 15 mls/hr IV .Q24H [facility] Stop: 04/02/21 05:59 Last Infusion: 04/01/21 07:39 Dose: 0 mls/hr Documented by: [id number] Admin: 04/01/21 07:01 Dose: 15 mls/hr Documented by: [id number] Cefazolin Sodium (Ancef 2000mg) 2,000 mg in 15 mls @ 3.75 mls/min IV PREOP [facility]GAN; Protocol Stop: 04/01/21 18:00 Last Admin: 04/01/21 07:39 Dose: 3.75 mls/min Documented by: [id number] Sodium Chloride (Nss 1000ml) 1,000 mls @ 100 mls/hr IV .Q10H [facility] Stop: 05/01/21 12:32 Last Admin: 04/02/21 09:05 Dose: Not Given Documented by: [id number] Infusion: 04/02/21 09:04 Dose: 0 mls/hr Documented by: [id number] Admin: 04/01/21 23:14 Dose: 100 mls/hr Documented by: [id number] Infusion: 04/01/21 23:14 Dose: 100 mls/hr Documented by: [id number] Admin: 04/01/21 13:20 Dose: 100 mls/hr Documented by: [id number] Cefazolin Sodium (Ancef 2000mg) 2,000 mg in 15 mls @ 3.75 mls/min IV Q8H [facility]; Protocol Stop: 04/02/21 00:03 Last Admin: 04/02/21 00:06 Dose: 3.75 mls/min Documented by: [id number] Admin: 04/01/21 15:59 Dose: 3.75 mls/min Documented by: [id number] Insulin Aspart (Insulin Aspart 100 Units/Ml 3 Ml Pen) 0 units SC TODAY@0000,0400 [facility]; Protocol Stop: 04/02/21 04:01 Last Admin: 04/02/21 04:00 Dose: 2 units Documented by: [id number] Cosigned by: [id number] Admin: 04/02/21 00:12 Dose: 6 units Documented by: [id number] Cosigned by: [id number] Insulin Glargine (Insulin Glargine Solostar 100 Units/Ml 3 Ml Pen) 20 units SC ONE ONE; Protocol Stop: 04/01/21 13:31 Last Admin: 04/01/21 14:27 Dose: 20 units Documented by: [id number] Cosigned by: [id number] Ketorolac Tromethamine (Ketorolac Tromethamine 15 Mg/Ml Vial) 15 mg IV Q6H [facility] Stop: 04/02/21 07:01 Last Admin: 04/02/21 06:12 Dose: 15 mg Documented by: [id number] Admin: 04/02/21 00:06 Dose: 15 mg Documented by: [id number] Admin: 04/01/21 18:00 Dose: 15 mg Documented by: [id number] Admin: 04/01/21 13:21 Dose: 15 mg Documented by: [id number] Miscellaneous ( Floseal Hemostatic Matrix 10ml) 10 ml TOP ONCE ONE Stop: 04/01/21 07:27 Last Admin: 04/01/21 09:50 Dose: 23 ml Documented by: [id number]
[2021-04-02 10:19] LABS: Appearance Urine Clear (Clear); Bacteria Urine Automated Negative (Negative); Bilirubin Urine Negative (Negative); Blood Urine 2+ (Negative); Color Urine Dark Yellow; Epithelial Cell Urine Auto >30 /lpf (0-5); Glucose Urine UA Negative (Negative); Ketones Urine Trace (Negative); Leukocyte Esterase Urine 1+ (Negative); Nitrite Urine Negative (Negative); Protein Urine 2+ (Negative); Specific Gravity Urine 1.022 (1.000-1.030); Urobilinogen Urine Negative (Negative)
[2021-04-02 10:55] LABS: Protein Creatinine Ratio Urine 0.3 (0-0.2); Sodium Random Urine < 5 mmol/L; Total Protein Urine Random 84.9 mg/dl (0-11.9)
--- NOTE | 2021-04-02 11:56 | Orthopedic Progress Note ---
Date of Service April 02, 2021 Assessment & Plan (1) Neurogenic claudication due to lumbar spinal stenosis: Plan: Patient will continue physical therapy monitor his KANG output hopefully discharge home in next few days. Admission and Anticipated Discharge Date Admission Date: April 01, 2021 Subjective Patient's back pain is controlled leg symptoms improved Physical Exam Physical Exam: Patient is good strength testing appears comfortable. Results & Data ([facility]) Vital Signs (Past 12 Hours) Vital Signs Temp Pulse Resp BP Pulse Ox 04/02/21 07:52 37 C 82 18 160/94 H 96 04/02/21 03:56 36.5 C 77 16 129/79 92
[2021-04-02] MEDS: THIAMINE HCL 100 MG TAB PO SCH (14:31)
[2021-04-02] MEDS: FOLIC ACID 1 MG TAB PO SCH (14:56)
[2021-04-02] MEDS: LORazepam 0.5 MG TAB PO PRN ×2 (16:30→17:49)
[2021-04-02 18:00] LABS: BUN Creatinine Ratio 11.5 (10-20); Calcium 8.3 mg/dl (8.5-10.1); Creatinine Clr Calc Pharmacy 31.1 ml/min; Est GFR (African American) 26.3 ml/min; Est GFR (Non-African American) 22.7 ml/min; Potassium 5.1 mmol/L (3.5-5.1)
[2021-04-02] MEDS: DOCUSATE SODIUM/SENNA 50/8.6MG TAB PO SCH (21:15)
[2021-04-02 23:24] LABS: BUN Creatinine Ratio 12.4 (10-20); Calcium 8.2 mg/dl (8.5-10.1); Creatinine Clr Calc Pharmacy 35.4 ml/min; Est GFR (African American) 30.8 ml/min; Est GFR (Non-African American) 26.6 ml/min; Potassium 5.4 mmol/L (3.5-5.1)
[2021-04-02] MEDS ORDERED: DEXTROSE 50% 50 ML SYRINGE IV ONE (23:32)
[2021-04-02] MEDS ORDERED: INSULIN HUMAN REGULAR PER UNIT 5 UNITS in SYRINGE 4.95 ML IV ONE (23:45)
[2021-04-03] MEDS: POLYETHYLENE (MIRALAX) 17 GM PACK PO SCH ×4 (00:44→18:00)
[2021-04-03] MEDS: SODIUM CHLORIDE 0.9% 1000ML 1,000 ML IV SCH ×2 (05:48→18:45)
[2021-04-03 06:35] LABS: Basophils # (auto) 0.01 K/uL (0-0.2); Basophils % (auto) 0.1 %; Eosinophils # (auto) 0.25 K/uL (0-0.5); Eosinophils % (auto) 2.5 %; Hematocrit (blood only) 31.4 % (42-52); Hemoglobin 10.6 g/dL (14.0-18.0); Immature Granulocytes # (auto) 0.02 K/uL (0.00-0.02); Immature Granulocytes % (auto) 0.2 %; Lymphocytes % (auto) 17.8 %; Mean Corpuscular Hemoglobin 30.5 pg (25-34); Mean Corpuscular Hgb Conc 33.8 g/dL (32-36); Mean Corpuscular Volume 90.2 fL (80-100); Mean Platelet Volume 10.5 fL (7.4-10.4); Monocytes # (auto) 1.33 K/uL (0.11-0.59); Monocytes % (auto) 13.2 %; Neutrophils # (auto) 6.68 K/uL (1.4-6.5); Neutrophils % (auto) 66.2 %; Platelet Count 135 K/uL (130-400); RDW Coefficient of Variation 14.4 % (11.5-14.5); RDW Standard Deviation 47.5 fL (36.4-46.3); Red Blood Count 3.48 M/uL (4.7-6.1); White Blood Count 10.09 K/uL (4.8-10.8)
[2021-04-03 07:08] LABS: BUN Creatinine Ratio 12.3 (10-20); Calcium 8.4 mg/dl (8.5-10.1); Creatinine Clr Calc Pharmacy 38.6 ml/min; Est GFR (African American) 34.1 ml/min; Est GFR (Non-African American) 29.5 ml/min; Potassium 4.6 mmol/L (3.5-5.1)
[2021-04-03] MEDS: traMADol HCL 50 MG TABLET PO PRN ×3 (08:00→19:37)
--- NOTE | 2021-04-03 08:55 | Pharmacy Report ---
Pharmacy Glycemic Short Note 2 - Date of Service April 03, 2021 - Glycemic Short BSG Results (Last 24 hours): 04/02/21 04/02/21 04/02/21 12:35 16:49 17:35 Glucose 176 H POC Glucose 145 H 189 H 04/02/21 04/02/21 04/03/21 20:52 22:40 06:11 Glucose 189 H 118 H POC Glucose 186 H 04/03/21 08:10 Glucose POC Glucose 129 H OUTPATIENT ANTIDIABETIC REGIMEN: * Metformin 500 mg PO BIDM * Glipizide 2.5 mg PO BIDM * HbA1c = 8.9% (03/19/21) ASSESSMENT: 04/03: * Patient received a total of 81 units of insulin yesterday * 45 units basal + 36 units bolus * BSGs were acceptable: [phone] mg/dl * Did receive a 5 unit IV insulin bolus + 25 mL of D50 around midnight for hyperkalemia * Fasting BSG was well controlled at 129 mg/dL today * Will start a fix Lantus dose today of 40 units split BID * Patient was started on Dexamethasone 6 mg IV daily starting this AM * Will add 0.3 units/kg of NPH to cover steroids 04/02: * Daniel received a total of 75 units of insulin yesterday postoperatively. * 35 units basal + 40 units bolus * BSGs were elevated: [phone] mg/dL * Fasting BSG was improved but still above goal range at 178 mg/dL this AM * Will increase basal scale by 15-30% today pending BSGs * No improvement in postprandial BSGs last evening. * Therefore, will tighten carb ratio this morning 04/01: * 65 yo M admitted status post spinal decompression/fusion. Pharmacy has been consulted postoperatively to assist with inpatient glycemic management. Patient is ordered a type 2 diabetic diet post op. As far as I can tell, no perioperative steroids were administered. * Preoperative BSG was 223 mg/dL. Postoperative BSGs were 249 and 255 mg/dL. * Will target a tighter goal range to help with wound healing and prevent postoperative infection. * Starting Novolog based on weight/stress of three. Adding overnight checks for the first night only. * Lantus will be given based on a weight and stress of two to three. Will add a scale this evening for hyperglycemia. PLAN FOR INPATIENT GLYCEMIC CONTROL: * Hold outpatient oral diabetes medications * Basal insulin - decreased * Lantus 40 units SC BID * NPH 30 units SC daily with Dexamethasone - If dexamethasone held/discontinued, please hold NPH and call pharmacy * Bolus insulin - no change * NovoLog per scale ACHS or Q6hrs while NPO * Goal Range: Low 110 mg/dL - High 140 mg/dL * Correction Factor: 15 mg/dL/unit * Nutritional / Prandial insulin per carb ratio of 1 unit per 5 grams CHO consumed PLAN FOR DISCHARGE: * HbA1c from earlier this month was 8.9% which is above the goal of less than 7% based on this patient's age and comorbidities. * Recommend increasing Metformin by 500 mg per week until target dose of 1000 mg PO BID is achieved. * Recommend increasing Glipizide to 2.5 mg per week until dose of 5 mg PO BID is achieve. * Continue with lifestyle modifications as well.
[2021-04-03] MEDS ORDERED: FLUoxetine HCL 20 MG CAP PO SCH (09:00)
[2021-04-03] MEDS ORDERED: NovoLIN-N (NPH) PER UNIT CHARGE SQ ONE (09:00)
[2021-04-03] MEDS: INSULIN ASPART 100 UNITS/ML 3 ML PEN SC SCH ×4 (09:05→21:27)
[2021-04-03] MEDS: INSULIN GLARGINE SOLOSTAR 100 UNITS/ML 3 ML PEN SC SCH ×2 (09:08→21:28)
[2021-04-03] MEDS: dexAMETHasone 6 MG in SYRINGE 0 ML IV SCH (09:09)
[2021-04-03] MEDS: THIAMINE HCL 100 MG TAB PO SCH (09:09)
[2021-04-03] MEDS: FOLIC ACID 1 MG TAB PO SCH (09:10)
[2021-04-03] MEDS: dilTIAZem HCL 30 MG TAB PO SCH ×2 (09:10→21:24)
[2021-04-03] MEDS: FLUoxetine HCL 20 MG CAP PO SCH (09:10)
--- NOTE | 2021-04-03 09:19 | Hospitalist Progress Note ---
Date of Service April 03, 2021 Assessment & Plan (1) S/P spinal surgery: Plan: This is a 65yo M with a PMH of DM II, depression, HTN and other medical problems listed below who is POD#2 s/p revision decompression with bilateral medial facetectomy foraminotomies L2-3, L3-4, L4-5 and L5-S1 and posterior spinal fusion L3-4, L4-5 L5-S1 by Dr. Sol. POD#2 s/p revision decompression with bilateral medial facetectomy foraminotomies L2-3, L3-4, L4-5 and L5-S1 and posterior spinal fusion L3-4, L4-5 L5-S1 by Dr. Sol Per ortho for pain control, wound care, anticoagulation and activities Monitor H&H (EBL 350ml, hgb 10.6 (pre-op hgb hgb 16.8) Continue incentive spirometry, PT/OT when appropriate (2) Acute worsening of stage 3 chronic kidney disease: Plan: Pre op cr 1.75, no baseline to compare but per PCP CKD 3 in setting of T2DM/HTN POD #1 creatinine 3.03, FeNa consistent with pre-renal etiology in setting of acute blood loss anemia --> improved to 2.24 today Continue gentle IVF @ 75 ml/hr Avoid nephrotoxic agents, continue holding lisinopril (3) Acute blood loss as cause of postoperative anemia: Plan: ebl 350ml; KANG drain 630ml pre op hgb 16.8, today 10.6 monitor, no need for transfusion at this time (4) UTI (urinary tract infection): Plan: UA with possible infection. Continue empiric Rocephin, arthur in place, follow urine cx (5) Hyponatremia: Plan: Pre-op sodium 136--? 128 today (improved from 127 yesterday) Osm studies consistent with renal injury Cr improving with gentle IV hydration, continue (6) Diabetes mellitus, type 2: Plan: A1C, 8.5 Hold home agents SSI while in-patient Glycemic consult placed by primary service BSG AC HS (7) Hypertension: Plan: BP 161/92, before a.m. meds Optimize pain control Continue diltiazem, hold lisinopril 2/2 to KALPESH Add prn antihypertensive as needed (8) Alcohol use: Plan: Endorses 3-4 beers nightly, last drink yesterday evening No signs/sx of withdrawal Alcohol withdrawal precautions ordered, IV ativan PRN, at risk protocol Continue folate, thiamine (9) Depression: Plan: Continue Prozac PCP: Dr. Hernandez ([place]) Dispo: Per orthopedic service Patient seen in collaboration with Dr. Rice, Please see addendum. Thank you for this consultation. We will follow the patient with you during their hospital stay. You can reach a member of the [facility] Hospitalist Team 01/03 via [place] Text @ "[facility] Hospitalist" role. Admission and Anticipated Discharge Date Admission Date: April 01, 2021 Supervising Physician Co-Signing Physician Notes Patient is seen and examined at bedside. No new complaints. Back pain is controlled. Renal function is improving. On exam patient is moderately built and nourished, no apparent distress, normocephalic atraumatic, lungs are clear to auscultation, S1-S2, no murmur, no peripheral edema, abdomen soft, nontender, normal bowel sounds, Back-surgical site in dressing, alert, awake, oriented, grossly moves all extremities.S/P lumbar decompression fusion surgery, KALPESH on CKD III, acute blood loss postoperative anemia, alcohol use disorder. Renal function slowly improving creatinine 2.2 today. Agree with holding lisinopril. Avoid nephrotoxic agents as able. Monitor for CBC. Currently no indication for transfusion. Wound care, activity, DVT prophylaxis as per primary team. Suspected UTI. Empirically started on Rocephin. Urine culture pending. Hyponatremia noted. Sodium 128 today. Monitor sodium levels closely. Continue gentle IV fluids. I personally reviewed the record. Patient is interviewed and examined at bedside. Patient's care is coordinated with Sierra Corado PA-C. Please refer to the documentation above for details of patient's presentation and for discussion of other issues. Subjective Patient seen and examined in 310-1. Feeling well today. Endorsing surgical site pain, no pain or paresthesias in bilateral lower extremities. No fever, chills, lightheadedness, chest pain, SOB, nausea, vomiting, abdominal pain, dysuria or diarrhea. Passing flatus, no bowel movement postoperatively. Review of Systems Review of Systems: At least ten systems reviewed and negative except as noted in the HPI. Physical Exam Physical Exam: General Appearance: WD/WN, vitals as above, NAD, sitting up in bed, pleasant, conversing easily Head: normocephalic, atraumatic Eyes: normal inspection, PERRL, conjunctivae normal, anicteric sclerae ENT: external ear and nose normal, oropharynx normal Neck: normal visual inspection, trachea midline, no thyromegaly Respiratory: normal respiratory effort, lungs clear to auscultation, no wheeze, rales, rhonchi. No accessory muscle use Cardiovascular: regular rate, rhythm, no murmur, normal peripheral pulses, no BLE edema. Vessels: no JVD Abdomen/GI: normal bowel sounds, soft, nontender, no hepatosplenomegaly Extremities/Musculoskeletal: + Lumbar surgical dressing c/d/i. KANG drain visualized. No cyanosis or clubbing, extremities motor strength 5/5 Neurologic: PERRL, EOMI, CN's II-XI intact bilaterally and moves all extremities. + Fine tremor bilateral hands noted Psychiatric: A+Ox3, euthymic affect Skin: no rashes, normal color, warm/dry Results & Data Results & Data ([facility]) Vital Signs (Past 12 Hours) Vital Signs Temp Pulse Resp BP Pulse Ox 04/03/21 07:04 37.0 C 85 16 161/92 H 91 04/03/21 02:40 36.8 C 88 18 155/83 H 91 04/02/21 22:48 37.1 C 94 H 18 163/96 H 93 Laboratory Results Short CBC 04/03/21 Range/Units 06:11 WBC 10.09 (4.8-10.8) K/uL Hgb 10.6 L (14.0-18.0) g/dL Hct 31.4 L (42-52) % Plt Count 135 (130-400) K/uL BMP 04/02/21 04/02/21 04/03/21 16:49 22:40 06:11 Sodium 127 L 127 L 128 L Potassium 5.1 5.4 H 4.6 Chloride 95 L 98 99 Carbon Dioxide 21 BUN 32 H 30 H 28 H Creatinine 2.78 H 2.44 H D 2.24 H Glucose 176 H 189 H 118 H Calcium 8.3 L 8.2 L 8.4 L Diagnostic Findings Lumbar Spine X-Ray 04/01/21 07:45 [place] lumbar spine 2-3V CLINICAL HISTORY: L3-S1 DECOMPRESSION/FUSION/INTERBODY COMPARISON STUDY: None. FLUOROSCOPY TIME: 32 seconds. FINDINGS: 2 fluoroscopic spot images of the lumbar spine demonstrate posterior decompression fusion from L3 through S1 with pedicle screws and rods. The hardware appears intact. IMPRESSION: Fluoroscopy provided for L3-S1 posterior decompression and fusion ACT 112: Negative or not required by law. Electronically signed by: Jose oDwns M.D. 04/01/2021 10:11 AM
--- NOTE | 2021-04-03 10:17 | Orthopedic Progress Note ---
Date of Service April 03, 2021 Assessment & Plan (1) Neurogenic claudication due to lumbar spinal stenosis: Plan: This time we will continue physical therapy assess his progress. He may very well be a candidate for rehab if so we will hopefully get him tomorrow to rehab. Admission and Anticipated Discharge Date Admission Date: April 01, 2021 Subjective Patient's back pain is controlled leg symptoms improved Physical Exam Physical Exam: Patient is in bed. He has good strength testing. Appears comfortable. Results & Data ([facility]) Vital Signs (Past 12 Hours) Vital Signs Temp Pulse Resp BP Pulse Ox 04/03/21 07:04 37.0 C 85 16 161/92 H 91 04/03/21 02:40 36.8 C 88 18 155/83 H 91 04/02/21 22:48 37.1 C 94 H 18 163/96 H 93
[2021-04-03] MEDS ORDERED: cefTRIAXone SODIUM 2,000 MG in DEXTROSE 5% 50 ML IV SCH (11:00)
[2021-04-03] MEDS ORDERED: amLODIPine BESYLATE 5 MG TAB PO ONE (16:23)
[2021-04-03] MEDS ORDERED: XOPENEX/ATROVENT 1.25mg/0.5MG NEB COMBO NEB STA (19:45)
[2021-04-03] MEDS ORDERED: IPRATROPIUM BROMIDE NEB SOLN 0.02% 2.5 ML VIAL INH STA (19:48)
[2021-04-03] MEDS ORDERED: LEVALBUTEROL 1.25MG/0.5ML NEB INH STA (19:48)
--- NOTE | 2021-04-03 20:20 | XRay Report ---
SINGLE VIEW CHEST CLINICAL HISTORY: Wheezing. FINDINGS: An AP, portable, upright chest radiograph is compared to study dated 03/19/2021. The heart i s enlarged noting atherosclerotic calcification of the thoracic aorta. The pulmonary vasculature is n oncongested. Emphysematous change is suggested. Chronic interstitial thickening is similar to previou s. There is elevation of the left hemidiaphragm with associated left basilar scarring/atelectasis. No airspace consolidation typical for pneumonia is identified. Question trace left pleural effusion No pneumothorax is seen. The bony thorax is grossly intact. IMPRESSION: 1. Cardiomegaly without radiographic evidence of congestive failure. 2. Question trace left pleural effusion. 3. No airspace consolidation is seen typical for pneumonia. ACT 112: Negative or not required by law. Electronically signed by: Joe Lopez M.D. 04/03/2021 8:18 PM
[2021-04-03] MEDS: DOCUSATE SODIUM/SENNA 50/8.6MG TAB PO SCH (21:24)
[2021-04-04] MEDS: POLYETHYLENE (MIRALAX) 17 GM PACK PO SCH ×5 (00:36→23:58)
[2021-04-04] MEDS ORDERED: INSULIN ASPART 100 UNITS/ML 3 ML PEN SC ONE (02:00)
[2021-04-04 06:31] LABS: Hematocrit (blood only) 30.4 % (42-52); Hemoglobin 10.7 g/dL (14.0-18.0); Mean Corpuscular Hemoglobin 31.4 pg (25-34); Mean Corpuscular Hgb Conc 35.2 g/dL (32-36); Mean Corpuscular Volume 89.1 fL (80-100); Mean Platelet Volume 10.9 fL (7.4-10.4); Platelet Count 164 K/uL (130-400); RDW Coefficient of Variation 14.3 % (11.5-14.5); RDW Standard Deviation 46.7 fL (36.4-46.3); Red Blood Count 3.41 M/uL (4.7-6.1); White Blood Count 12.11 K/uL (4.8-10.8)
[2021-04-04 06:58] LABS: BUN Creatinine Ratio 15.4 (10-20); Calcium 9.2 mg/dl (8.5-10.1); Creatinine Clr Calc Pharmacy 43.4 ml/min; Est GFR (African American) 39.4 ml/min
[2021-04-04] MEDS: dilTIAZem HCL 30 MG TAB PO SCH ×2 (08:10→21:38)
[2021-04-04] MEDS: FLUoxetine HCL 20 MG CAP PO SCH (08:10)
[2021-04-04] MEDS: THIAMINE HCL 100 MG TAB PO SCH (08:10)
[2021-04-04] MEDS: FOLIC ACID 1 MG TAB PO SCH (08:10)
[2021-04-04] MEDS: traMADol HCL 50 MG TABLET PO PRN ×2 (08:14→19:39)
[2021-04-04] MEDS ORDERED: NovoLIN-N (NPH) PER UNIT CHARGE SQ ONE (08:45)
[2021-04-04] MEDS: INSULIN GLARGINE SOLOSTAR 100 UNITS/ML 3 ML PEN SC SCH ×2 (09:01→21:39)
--- NOTE | 2021-04-04 09:01 | Discharge Summary ---
Date of Service April 04, 2021 Admission HPI Per Admitting Provider This is a 65-year-old male who presents with chronic persistent back and bilateral leg pain. After failing course of nonoperative care is here for surgical invention. Principal Diagnosis Lumbar spinal stenosis with neurogenic claudication Discharge Data Allergies Allergy/AdvReac Type Severity Reaction Status Date / Time No Known Allergies Allergy Verified 04/01/21 06:19 Consultations 04/01/21 12:33 Consult Hospitalist Routine Procedures Performed Operation Date: 04/01/21 07:45 Actual Procedures p L3-S1 Decompression/Fusion, Interbody Cage, L4-L5, Spinal Cord Monitoring(Not Applicable) - Ruel Sol DO Ordered Studies 04/01/21 07:45 [place] lumbar spine 2-3V Routine Hospital Course (1) Neurogenic claudication due to lumbar spinal stenosis: Patient 1 multilevel lumbar decompression fusion tolerated this well was taken to orthopedic for postop bleed. Postop day 1 he was getting physical therapy progressed to better postop day #2 on postop day #3 stable still requiring significant assistance with transfers and ambulation subsequently discharged to rehab. Discharge instructions from the chart for further review. Total Time Total Time Spent Total Time Spent (In Minutes): 20 minutes Discharge Plan Discharge Items Patient Disposition: Transfer Inpatient Rehab Fac Reason For Visit: Spinal Stenosis, Lumbar Region with Neurogenic Cla Discharge Diagnosis: Lumbar spinal stenosis with neurogenic claudication Activity: As commented below Non-emergency contact: Primary Care Provider Call non-emergency contact if: you have any medication questions Follow-up/Referrals: Eldon Hernandez [Primary Care Provider] - Diet: Regular Addtl Attending Provider Instructions: ACTIVITY RECOMMENDATIONS: SELF CARE INSTRUCTIONS AFTER THORACIC/LUMBAR FUSIONS 1. You may walk to your tolerance. It is good exercise for your legs and back. Expect some back and intermittent leg aches and pains. 2. You may perform "counter-top" level activities (make a sandwich, megan with a project, etc.). 3. No bending or lifting of more than 10 pounds or back twisting of any nature (roll like a log when turning in bed). 4. You may ride in a car for 20-30 minutes at a time. No driving until after your first visit with your doctor. 5. Frequent changes of position and restricting sitting to 30 minutes at a time will help limit the amount of back spasms and stiffness you may experience. 6. You may discontinue the use of ambulatory aids (cane, crutches, etc.) once your strength and confidence allow. 7. You may canvas shrinker the shower and let water strike your incision when you arrive home at least once daily. Do not take a tub bath, sit in a hot tub or go into a swimming pool until after your first recheck in the office. SPECIAL CARE INSTRUCTIONS: VERY IMPORTANT TO READ AND REVIEW A. Your surgical incision has been closed with a cosmetic suture under the skin that will dissolve in about 6 weeks. In 14 days, you can use a pair of clean scissors and cut the suture that is left outside of the skin at the ends of your incision. 1. The small skin tapes can be removed 7 days after surgery if they have not fallen off by that point. 2. You may keep the wound open to air as much as possible to promote healing after post-op day number 5 unless told otherwise by your doctor. 3. If you think the wound looks like it is becoming infected (redness or worsening drainage) and/or you are experiencing fever, chill or worsening back pain and muscle spasms, contact the office so that we may evaluate you as soon as possible. B. Complications are uncommon, but please contact us if you have any signs or symptoms of: 1. wound infection (fever higher than 102.5 degrees F, redness, separation of wound, drainage, or increasing pain from the incision) 2. blood clots in legs (pain, swelling, redness and warmth in legs) 3. urinary tract infection (fever higher than 102.5 degrees F, burning upon urination or increased frequency of urination) 4. nerve problems (inability to walk on your toes or heels, numbness, loss of bowel or bladder control) 5. any other symptoms that concern you C. Please call the office at if you have any concerns or questions about your operation or recovery. D. No smoking! Smoking drastically decreases the chance of a solid fusion. E. Do not take any anti-inflammatory medications (Indocin, Advil, Motrin, Aspirin, Naprosyn, etc.) as these may inhibit the chance of a solid fusion. Tylenol is okay to take for pain. MANAGING PAIN AFTER SPINAL SURGERY 1. Narcotic medication is intended for short-term use and will be provided for surgical pain. Surgical pain usually lasts for a period of 4-6 weeks. Narcotic medication includes Percocet, Vicodin, Darvocet, Tylenol #3 or Lortab. 2. Longer-term pain is more appropriately treated with non-narcotic medication such as Tylenol ES. 3. Muscle spasm is not appropriately treated with narcotics. Muscle relaxers such as Soma, Flexeril or Skelaxin can be used along with Tylenol ES. 4. Remember that we all live with some "aches and pains". This is not unusual or uncommon after an injury or as we get older. a. Back pain is expected and may include muscle spasms for 4 to 6 weeks after surgery. The pain should gradually improve. If the pain worsens for no apparent reason, please contact the office. b. Intermittent leg pain may also be experienced and should not be concerned about unless it worsens for no apparent reason. If so, please contact the office. 5. We will provide appropriate medication within the normal guidelines of their prescribed use. We will also be very cautious and aware of potential abuse and extended duration of patients' medication needs. a. Pain medications are for your comfort and to assist with sleep and rest so that the tissue can heal. They are not provided in order to return to normal activity and should not be used through the day. To do so or worsening pain at night can result from ongoing tissue damage and development of tolerance to the prescribed medicine. 6. Please allow 2-3 days to process refills. Prescriptions will not be mailed but must be picked up at the office. FOLLOW UP VISIT: Keep your scheduled follow-up appointment. Any questions, please call the office at . Pending Studies at Discharge: No Stand-Alone Forms: My [facility] imbookin ([place]), Smoking Cessation Skilled Items Patient informed of condition?: Yes DNR: No Discharge Level of Care: Acute rehab Communicable Disease: No Discharge Prognosis: Improving Lines: None Urinary Catheter: No Medications and DC Order Prescriptions: New tramadol 50 mg tablet 50 mg PO Q6H PRN (Reason: pain, moderate) Qty: 30 RF: 0 oxycodone 5 mg tablet 5 mg PO Q6H PRN (Reason: pain, severe) Qty: 30 RF: 0 Continued fluoxetine [Prozac] 40 mg Capsule 40 mg PO DAILY RF: 0 metformin 500 mg Tablet 500 mg PO BID RF: 0 lisinopril 20 mg Tablet 20 mg PO QAM RF: 0 glipizide 5 mg Tablet 2.5 mg PO BID RF: 0 diltiazem HCl 90 mg Tablet 90 mg PO BID RF: 0 Discharge Orders: Discharge Order (Routine); Ordered 04/04/21 Ordered By: Ruel Burton/Other Patient Handouts: A1C, Managing Type 2 Diabetes Admission Data Admit Date/Time: 04/01/21 10:05 Attending Provider: Ruel Sol Admit Provider: Ruel Sol Primary Care Provider: Eldon Hernandez Other Providers: Francesco Rice
[2021-04-04] MEDS: INSULIN ASPART 100 UNITS/ML 3 ML PEN SC SCH ×4 (09:02→21:39)
[2021-04-04] MEDS: dexAMETHasone 6 MG in SYRINGE 0 ML IV SCH (09:02)
[2021-04-04] MEDS: SODIUM CHLORIDE 0.9% 1000ML 1,000 ML IV SCH (09:10)
--- NOTE | 2021-04-04 10:20 | Pharmacy Report ---
Pharmacy Glycemic Short Note 2 - Date of Service April 04, 2021 - Glycemic Short BSG Results (Last 24 hours): 04/03/21 04/03/21 04/03/21 11:57 16:51 20:49 Glucose POC Glucose 127 H 184 H 211 H 04/04/21 04/04/21 04/04/21 02:02 06:03 08:02 Glucose 156 H POC Glucose 185 H 169 H OUTPATIENT ANTIDIABETIC REGIMEN: * Metformin 500 mg PO BIDM * Glipizide 2.5 mg PO BIDM * HbA1c = 8.9% (03/19/21) ASSESSMENT: 04/04: * Daniel received a total of 105 units of insulin yesterday * 70 units basal + 35 units bolus * BSGs were acceptable: [phone] mg/dL * Fasting BSG increased to 169 mg/dL this AM * Believe current Lantus dose is too low so will increased by 20% today * BSGs trended upward throughout the day yesterday. Dinner BSG of 184 mg/dL is indicative of an inadequate NPH dose to cover steroids. Patient will remain on IV dexamethasone 6 mg this AM so will increased NPH to 0.4 units/kg. 04/03: * Patient received a total of 81 units of insulin yesterday * 45 units basal + 36 units bolus * BSGs were acceptable: 690-176-382-186 mg/dl * Did receive a 5 unit IV insulin bolus + 25 mL of D50 around midnight for hyperkalemia * Fasting BSG was well controlled at 129 mg/dL today * Will start a fix Lantus dose today of 40 units split BID * Patient was started on Dexamethasone 6 mg IV daily starting this AM * Will add 0.3 units/kg of NPH to cover steroids PLAN FOR INPATIENT GLYCEMIC CONTROL: * Hold outpatient oral diabetes medications * Basal insulin - increased * Lantus 24 units SC BID * NPH 40 units SC daily with Dexamethasone - If dexamethasone held/discontinued, please hold NPH and call pharmacy * Bolus insulin - no change * NovoLog per scale ACHS or Q6hrs while NPO * Goal Range: Low 110 mg/dL - High 140 mg/dL * Correction Factor: 15 mg/dL/unit * Nutritional / Prandial insulin per carb ratio of 1 unit per 5 grams CHO consumed PLAN FOR DISCHARGE: * HbA1c from earlier this month was 8.9% which is above the goal of less than 7% based on this patient's age and comorbidities. * Recommend increasing Metformin by 500 mg per week until target dose of 1000 mg PO BID is achieved. * Recommend increasing Glipizide to 2.5 mg per week until dose of 5 mg PO BID is achieve. * Continue with lifestyle modifications as well.
--- NOTE | 2021-04-04 11:59 | Hospitalist Progress Note ---
Date of Service April 04, 2021 Assessment & Plan (1) S/P spinal surgery: Plan: Patient is a 65 yr male with H/O DM II, depression, HTN and other medical problems listed below who is POD#2 s/p revision decompression with bilateral medial facetectomy foraminotomies L2-3, L3-4, L4-5 and L5-S1 and posterior spinal fusion L3-4, L4-5 L5-S1 by Dr[address] Sol. S/P revision decompression with bilateral medial facetectomy foraminotomies L2- 3, L3-4, L4-5 and L5-S1 and posterior spinal fusion L3-4, L4-5 L5-S1 by Dr. Sol POD #3 Pain is controlled Wound care, anticoagulation and activities Continue incentive spirometry Continue PT/OT Continue bowel regimen (2) Acute worsening of stage 3 chronic kidney disease: Plan: Acute Kidney injury on CKD III Pre op Cr 1.75 Unclear baseline Cr:3.03>2.24>1.99 Received IV fluids Avoid nephrotoxic agents Held lisinopril for now (3) Acute blood loss as cause of postoperative anemia: Plan: ebl 350ml; KANG drain 630ml pre op hgb 16.8, today 10.7 monitor (4) UTI (urinary tract infection): Plan: UTI ruled out Rocephin discontinued (5) Hyponatremia: Plan: Pre-op sodium 136--? 128 today (improved from 127 yesterday) ? Chronic Hyponatremia in setting of chronic alcohol use Sodium 128 today Monitor Advised to quit alcohol use Advised to follow up with his tobacco classer with repeat BMP in 1 week (6) Diabetes mellitus, type 2: Plan: A1C, 8.5 Hold home agents SSI while in-patient Glycemic consult placed by primary service BSG AC HS (7) Hypertension: Plan: BP 161/92, before a.m. meds Optimize pain control Continue diltiazem, hold lisinopril 2/2 to KALPESH Add prn antihypertensive as needed (8) Alcohol use: Plan: Endorses 3-4 beers nightly, last drink yesterday evening No signs/sx of withdrawal Alcohol withdrawal precautions ordered, IV ativan PRN, at risk protocol Continue folate, thiamine (9) Depression: Plan: Continue Prozac PCP: Dr. Hernandez ([place]) Dispo: Per orthopedic service Thank you for this consultation. We will follow the patient with you during their hospital stay. You can reach a member of the [facility] Hospitalist Team 01/03 via [place] Text @ "[facility] Hospitalist" role. Admission and Anticipated Discharge Date Admission Date: April 01, 2021 Subjective Patient is seen and examined at bedside States feeling well today Back pain is much better today Denies any chest pain, arousable, dizziness, nausea, abdominal pain Offers no other complaints Review of Systems Review of Systems: All systems reviewed & are unremarkable except as noted in Subjective Physical Exam Physical Exam: Physical Exam: Vitals signs as noted above General Appearance:Moderately built and nourished, no apparent distress Head: normocephalic, Atraumatic Eyes: normal inspection, EOMI Neck: supple, Trachea midline Respiratory/Chest: Normal breath sounds, CTA, No accessory muscle use Cardiovascular: S1, S2, No murmur Abdomen/GI:Soft, Non tender, Bowel sounds present Back: Surgical site in dressing, +drain Extremities/Musculoskeletal:normal inspection, no edema Neurologic/Psych:AAOX3, grossly no focal neurological deficits Skin: normal color, warm Results & Data Results & Data ([facility]) Vital Signs (Past 12 Hours) Vital Signs Temp Pulse Resp BP Pulse Ox 04/04/21 08:16 167/95 H 04/04/21 07:21 36.7 C 73 16 171/106 H 95 Laboratory Results Short CBC 04/04/21 Range/Units 06:03 WBC 12.11 H (4.8-10.8) K/uL Hgb 10.7 L (14.0-18.0) g/dL Hct 30.4 L (42-52) % Plt Count 164 (130-400) K/uL BMP 04/04/21 06:03 Sodium 128 L Potassium 5.0 Chloride 99 Carbon Dioxide 22 BUN 31 H Creatinine 1.99 H Glucose 156 H Calcium 9.2
[2021-04-04] MEDS: DOCUSATE SODIUM/SENNA 50/8.6MG TAB PO SCH (21:38)
[2021-04-05 06:24] LABS: Hematocrit (blood only) 31.4 % (42-52); Hemoglobin 10.6 g/dL (14.0-18.0)
[2021-04-05 06:56] LABS: BUN Creatinine Ratio 23.4 (10-20); Calcium 9.4 mg/dl (8.5-10.1); Creatinine Clr Calc Pharmacy 46.9 ml/min; Est GFR (African American) 43.3 ml/min; Est GFR (Non-African American) 37.4 ml/min; Potassium 5.1 mmol/L (3.5-5.1)
[2021-04-05] MEDS ORDERED: amLODIPine BESYLATE 5 MG TAB PO SCH (09:00)
[2021-04-05] MEDS ORDERED: NovoLIN-N (NPH) PER UNIT CHARGE SQ ONE (09:00)
[2021-04-05] MEDS: traMADol HCL 50 MG TABLET PO PRN ×2 (09:26→19:26)
[2021-04-05] MEDS: dexAMETHasone 6 MG in SYRINGE 0 ML IV SCH (09:28)
[2021-04-05] MEDS: dilTIAZem HCL 30 MG TAB PO SCH ×2 (09:28→20:29)
[2021-04-05] MEDS: FOLIC ACID 1 MG TAB PO SCH (09:29)
[2021-04-05] MEDS: THIAMINE HCL 100 MG TAB PO SCH (09:29)
[2021-04-05] MEDS: FLUoxetine HCL 20 MG CAP PO SCH (09:29)
[2021-04-05] MEDS: INSULIN ASPART 100 UNITS/ML 3 ML PEN SC SCH ×4 (09:31→20:34)
[2021-04-05] MEDS: INSULIN GLARGINE SOLOSTAR 100 UNITS/ML 3 ML PEN SC SCH ×2 (09:32→20:31)
[2021-04-05] MEDS: lisinopril 20 MG TAB PO SCH (10:40)
--- NOTE | 2021-04-05 10:59 | Orthopedic Progress Note ---
Date of Service April 05, 2021 Assessment & Plan (1) Neurogenic claudication due to lumbar spinal stenosis: Plan: We will continue physical therapy. We will discontinue his drain today. Awaiting placement for rehab. He is able to discharge 1 accepted. Admission and Anticipated Discharge Date Admission Date: April 01, 2021 Subjective Patient's back pain is controlled leg pain improved. He is awaiting rehab placement. Physical Exam Physical Exam: Patient is comfortable is good strength testing. Results & Data ([facility]) Vital Signs (Past 12 Hours) Vital Signs Temp Pulse Pulse Resp BP BP Pulse Ox 04/05/21 10:39 74 176/72 H 04/05/21 07:47 36.5 C 73 18 166/99 H 174/100 H 93 04/04/21 23:58 77 163/81 H
--- NOTE | 2021-04-05 13:15 | Hospitalist Progress Note ---
Date of Service April 05, 2021 Assessment & Plan (1) S/P spinal surgery: Plan: Patient is a 65 yr male with H/O DM II, depression, HTN and other medical problems listed below who is POD#2 s/p revision decompression with bilateral medial facetectomy foraminotomies L2-3, L3-4, L4-5 and L5-S1 and posterior spinal fusion L3-4, L4-5 L5-S1 by Dr. Sol. S/P revision decompression with bilateral medial facetectomy foraminotomies L2- 3, L3-4, L4-5 and L5-S1 and posterior spinal fusion L3-4, L4-5 L5-S1 by Dr. Sol POD #4 Pain is controlled Wound care, anticoagulation and activities Continue incentive spirometry Continue PT/OT Continue bowel regimen Waiting for Rehab placement (2) Acute worsening of stage 3 chronic kidney disease: Plan: Acute Kidney injury on CKD III Pre op Cr 1.75 Unclear baseline Cr:3.03>2.24>1.84 Received IV fluids Avoid nephrotoxic agents (3) Acute blood loss as cause of postoperative anemia: Plan: EBL 350ml; KANG drain 630ml Pre op hgb 16.8 Hb stable monitor (4) UTI (urinary tract infection): Plan: UTI ruled out Rocephin discontinued (5) Hyponatremia: Plan: Pre-op sodium 136: ? Hemo concentration at that time ? Chronic Hyponatremia in setting of chronic alcohol use Sodium 129 today Monitor Advised to quit alcohol use Advised to follow up with his homemaker companion with repeat BMP in 1 week (6) Diabetes mellitus, type 2: Plan: A1C, 8.5 Hold home agents SSI while in-patient Glycemic consult placed by primary service BSG AC HS (7) Hypertension: Plan: BP elevated Optimize pain control Continue diltiazem Resume lisinopril PRN Clonidine (8) Alcohol use: Plan: Endorses 3-4 beers nightly, last drink yesterday evening No signs/sx of withdrawal Alcohol withdrawal precautions ordered, IV ativan PRN, at risk protocol Continue folate, thiamine (9) Depression: Plan: Continue Prozac PCP: Dr. Hernandez ([place]) Dispo: Per orthopedic service Thank you for this consultation. We will follow the patient with you during their hospital stay. You can reach a member of the [facility] Hospitalist Team 01/03 via [place] Text @ "[facility] Hospitalist" role. Admission and Anticipated Discharge Date Admission Date: April 01, 2021 Subjective Patient is seen and examined at bedside Drain plan to be removed today Patient had bowel movement Waiting for rehab placement Back pain is controlled Denies any chest pain, arousable, dizziness, nausea, abdominal pain Offers no other complaints Review of Systems Review of Systems: All systems reviewed & are unremarkable except as noted in Subjective Physical Exam Physical Exam: Physical Exam: Vitals signs as noted above General Appearance:Moderately built and nourished, no apparent distress Head: normocephalic, Atraumatic Eyes: normal inspection, EOMI Neck: supple, Trachea midline Respiratory/Chest: Normal breath sounds, CTA, No accessory muscle use Cardiovascular: S1, S2, No murmur Abdomen/GI:Soft, Non tender, Bowel sounds present Back: Surgical site in dressing Extremities/Musculoskeletal:normal inspection, no edema Neurologic/Psych:AAOX3, grossly no focal neurological deficits Skin: normal color, warm Results & Data Results & Data ([facility]) Vital Signs (Past 12 Hours) Vital Signs Temp Pulse Pulse Resp BP BP Pulse Ox 04/05/21 10:39 74 176/72 H 04/05/21 07:47 36.5 C 73 18 166/99 H 174/100 H 93 Laboratory Results Short CBC 04/05/21 Range/Units 05:33 Hgb 10.6 L (14.0-18.0) g/dL Hct 31.4 L (42-52) % BMP 04/05/21 05:33 Sodium 129 L Potassium 5.1 Chloride 100 Carbon Dioxide 25 BUN 43 H Creatinine 1.84 H Glucose 121 H Calcium 9.4
[2021-04-05] MEDS: cloNIDine HCL 0.1 MG TAB PO PRN (20:29)
[2021-04-05] MEDS: DOCUSATE SODIUM/SENNA 50/8.6MG TAB PO SCH (20:29)
[2021-04-06 05:56] LABS: Hematocrit (blood only) 31.2 % (42-52); Hemoglobin 10.6 g/dL (14.0-18.0)
[2021-04-06 06:11] LABS: BUN Creatinine Ratio 24.1 (10-20); Calcium 9.1 mg/dl (8.5-10.1); Creatinine Clr Calc Pharmacy 47.7 ml/min; Est GFR (African American) 44.2 ml/min; Est GFR (Non-African American) 38.1 ml/min; Potassium 4.6 mmol/L (3.5-5.1)
[2021-04-06] MEDS: LORazepam 0.5 MG TAB PO PRN (07:29)
[2021-04-06] MEDS: dilTIAZem HCL 30 MG TAB PO SCH ×2 (08:11→21:07)
[2021-04-06] MEDS: lisinopril 20 MG TAB PO SCH (08:12)
[2021-04-06] MEDS: FLUoxetine HCL 20 MG CAP PO SCH (08:12)
[2021-04-06] MEDS: THIAMINE HCL 100 MG TAB PO SCH (08:12)
[2021-04-06] MEDS: FOLIC ACID 1 MG TAB PO SCH (08:13)
[2021-04-06] MEDS: traMADol HCL 50 MG TABLET PO PRN ×3 (08:15→19:24)
[2021-04-06] MEDS: INSULIN ASPART 100 UNITS/ML 3 ML PEN SC SCH ×4 (08:32→21:09)
[2021-04-06] MEDS: dexAMETHasone 6 MG in SYRINGE 0 ML IV SCH (08:33)
[2021-04-06] MEDS: INSULIN GLARGINE SOLOSTAR 100 UNITS/ML 3 ML PEN SC SCH ×2 (08:33→21:08)
[2021-04-06] MEDS ORDERED: NovoLIN-N (NPH) PER UNIT CHARGE SQ ONE ×2 (09:00)
--- NOTE | 2021-04-06 10:54 | Orthopedic Progress Note ---
Date of Service April 06, 2021 Assessment & Plan (1) Neurogenic claudication due to lumbar spinal stenosis: Plan: At this time continue physical therapy and await placement for rehab hopefully Wednesday Admission and Anticipated Discharge Date Admission Date: April 01, 2021 Subjective Patient has no complaints has been resting comfortably Physical Exam Physical Exam: Patient is comfortable neurologically intact Results & Data ([facility]) Vital Signs (Past 12 Hours) Vital Signs Temp Pulse Resp BP Pulse Ox 04/06/21 08:10 66 171/94 H 04/06/21 07:18 36.4 C L 75 18 184/102 H 94 04/05/21 23:33 36.4 C L 61 17 160/97 H 95
--- NOTE | 2021-04-06 11:13 | Pharmacy Report ---
Pharmacy Glycemic Short Note 2 - Date of Service April 06, 2021 - Glycemic Short BSG Results (Last 24 hours): 04/05/21 04/05/21 04/05/21 12:17 17:15 20:33 Glucose POC Glucose 161 H 212 H 230 H 04/06/21 04/06/21 05:30 08: Glucose 224 H POC Glucose 281 H OUTPATIENT ANTIDIABETIC REGIMEN: * Metformin 500 mg PO BIDM * Glipizide 2.5 mg PO BIDM * HbA1c = 8.9% (03/19/21) ASSESSMENT: 04/06: * Pt received total 134 units of insulin yesterday; 88 units basal (NPH= 40 + Lantus= 48) plus Novolog bolus = 46 units. * Fasting BSG today was elevated at 224 mg/dl. This is unusual from previous days. Will continue current dose of Lantus for now and re-assess tomorrow. If fasting continues to be elevated without reason, may need to increase Lantus dose. * Patient continues to be on IV Decadron in the AM. NPH insulin is used to cover the steroid induced hyperglycemia. Since BSG was above 200 yesterday at dinner and bedtime, NPH dose was increased today AM. * Novolog parameters continued the same today. 04/04: * Daniel received a total of 105 units of insulin yesterday * 70 units basal + 35 units bolus * BSGs were acceptable: [phone] mg/dL * Fasting BSG increased to 169 mg/dL this AM * Believe current Lantus dose is too low so will increased by 20% today * BSGs trended upward throughout the day yesterday. Dinner BSG of 184 mg/dL is indicative of an inadequate NPH dose to cover steroids. Patient will remain on IV dexamethasone 6 mg this AM so will increased NPH to 0.4 units/kg. 04/03: * Patient received a total of 81 units of insulin yesterday * 45 units basal + 36 units bolus * BSGs were acceptable: [phone] mg/dl * Did receive a 5 unit IV insulin bolus + 25 mL of D50 around midnight for hyperkalemia * Fasting BSG was well controlled at 129 mg/dL today * Will start a fix Lantus dose today of 40 units split BID * Patient was started on Dexamethasone 6 mg IV daily starting this AM * Will add 0.3 units/kg of NPH to cover steroids PLAN FOR INPATIENT GLYCEMIC CONTROL: * Hold outpatient oral diabetes medications * Basal insulin * Lantus 24 units SC BID * NPH 50 units SC daily with Dexamethasone - If dexamethasone held/discontinued, please hold NPH and call pharmacy * Bolus insulin - no change * NovoLog per scale ACHS or Q6hrs while NPO * Goal Range: Low 110 mg/dL - High 140 mg/dL * Correction Factor: 15 mg/dL/unit * Nutritional / Prandial insulin per carb ratio of 1 unit per 5 grams CHO consumed PLAN FOR DISCHARGE: * HbA1c from earlier this month was 8.9% which is above the goal of less than 7% based on this patient's age and comorbidities. * Recommend increasing Metformin by 500 mg per week until target dose of 1000 mg PO BID is achieved. * Recommend increasing Glipizide to 2.5 mg per week until dose of 5 mg PO BID is achieve. * Continue with lifestyle modifications as well.
--- NOTE | 2021-04-06 15:53 | Hospitalist Progress Note ---
Date of Service April 06, 2021 Assessment & Plan (1) S/P spinal surgery: Plan: Patient is a 65 yr male with H/O DM II, depression, HTN and other medical problems listed below who is POD#2 s/p revision decompression with bilateral medial facetectomy foraminotomies L2-3, L3-4, L4-5 and L5-S1 and posterior spinal fusion L3-4, L4-5 L5-S1 by Dr. Sol. S/P revision decompression with bilateral medial facetectomy foraminotomies L2- 3, L3-4, L4-5 and L5-S1 and posterior spinal fusion L3-4, L4-5 L5-S1 by Dr. Sol POD #5 Pain is controlled Wound care, anticoagulation and activities Continue incentive spirometry Continue PT/OT Continue bowel regimen Waiting for Rehab placement Continue current management (2) Acute worsening of stage 3 chronic kidney disease: Plan: Acute Kidney injury on CKD III Pre op Cr 1.75 Unclear baseline Cr:3.03>2.24>1.81 Received IV fluids Avoid nephrotoxic agents Monitor renal function (3) Acute blood loss as cause of postoperative anemia: Plan: EBL 350ml; KANG drain 630ml Pre op hgb 16.8 Hb stable monitor (4) UTI (urinary tract infection): Plan: UTI ruled out Rocephin discontinued (5) Hyponatremia: Plan: Pre-op sodium 136: ? Hemo concentration at that time ? Chronic Hyponatremia in setting of chronic alcohol use Sodium 129 today Monitor Advised to quit alcohol use Advised to follow up with his bee farmer with repeat BMP in 1 week Start on fluid restriction (6) Diabetes mellitus, type 2: Plan: A1C, 8.5 Hold home agents SSI while in-patient Glycemic consult placed by primary service BSG AC HS (7) Hypertension: Plan: BP elevated Optimize pain control Continue diltiazem, lisinopril PRN Clonidine (8) Alcohol use: Plan: Endorses 3-4 beers nightly, last drink yesterday evening No signs/sx of withdrawal Alcohol withdrawal precautions ordered, IV ativan PRN, at risk protocol Continue folate, thiamine No signs of withdrawal (9) Depression: Plan: Continue Prozac PCP: Dr. Hernandez ([place]) Dispo: Per orthopedic service Thank you for this consultation. We will follow the patient with you during their hospital stay. You can reach a member of the [facility] Hospitalist Team 01/03 via [place] Text @ "[facility] Hospitalist" role. Admission and Anticipated Discharge Date Admission Date: April 01, 2021 Subjective Patient is seen and examined at bedside No new complaints Waiting for rehab placement Back pain is controlled Denies any chest pain, arousable, dizziness, nausea, abdominal pain Sodium 129 today Review of Systems Review of Systems: All systems reviewed & are unremarkable except as noted in Subjective Physical Exam Physical Exam: Physical Exam: Vitals signs as noted above General Appearance:Moderately built and nourished, no apparent distress Head: normocephalic, Atraumatic Eyes: normal inspection, EOMI Neck: supple, Trachea midline Respiratory/Chest: Normal breath sounds, CTA, No accessory muscle use Cardiovascular: S1, S2, No murmur Abdomen/GI:Soft, Non tender, Bowel sounds present Back: Surgical site in dressing Extremities/Musculoskeletal:normal inspection, no edema Neurologic/Psych:AAOX3, grossly no focal neurological deficits Skin: normal color, warm Results & Data Results & Data ([facility]) Vital Signs (Past 12 Hours) Vital Signs Temp Pulse Pulse Resp BP Pulse Ox 04/06/21 14:37 36.4 C L 70 16 166/94 H 95 04/06/21 12:37 72 175/88 H 04/06/21 10:55 176/97 H 04/06/21 08:10 66 171/94 H 04/06/21 07:18 36.4 C L 75 18 184/102 H 94 Laboratory Results Short CBC 04/06/21 Range/Units 05:30 Hgb 10.6 L (14.0-18.0) g/dL Hct 31.2 L (42-52) % BMP 04/06/21 05:30 Sodium 129 L Potassium 4.6 Chloride 100 Carbon Dioxide 27 BUN 44 H Creatinine 1.81 H Glucose 224 H Calcium 9.1
[2021-04-06] MEDS: DOCUSATE SODIUM/SENNA 50/8.6MG TAB PO SCH (21:07)
[2021-04-06] MEDS: cloNIDine HCL 0.1 MG TAB PO PRN (21:07)
[2021-04-06] MEDS ORDERED: hydrALAZINE HCL 20 MG/ML VIAL IV STA (22:54)
[2021-04-06] MEDS ORDERED: amLODIPine BESYLATE 5 MG TAB PO ONE (22:56)
[2021-04-06] MEDS ORDERED: GABAPENTIN 600 MG TAB PO ONE (22:57)
[2021-04-06] MEDS ORDERED: LORazepam 2 MG/4 ML VIAL IV PRN (22:57)
[2021-04-06] MEDS ORDERED: LORazepam 1 MG/2 ML VIAL IV PRN (22:57)
[2021-04-06] MEDS ORDERED: GABAPENTIN 1200MG ALCOHOL WITHDRAWAL LOAD PO STA (22:57)
[2021-04-06] MEDS ORDERED: LORazepam 3 MG/6 ML VIAL IV PRN (22:57)
[2021-04-06] MEDS ORDERED: ATIVAN IV ALCOHOL WITHDRAWL IV PRN (22:57)
--- NOTE | 2021-04-06 23:00 | Communication Note ---
Date of Service: April 06, 2021 Made aware by RN of uncontrolled blood pressure. SBP 1 60-2 20s the last 72 hours. Clonidine as needed ineffective. Back pain controlled but patient tremulous as per RN. AP Hypertensive urgency Alcohol withdrawal Add Norvasc to her regimen. DODIE S, DT precautions Will relay to AM provider.
[2021-04-07] MEDS: GABAPENTIN 600 MG TAB PO SCH ×3 (05:47→20:36)
[2021-04-07 07:23] LABS: BUN Creatinine Ratio 23.4 (10-20); Calcium 9.1 mg/dl (8.5-10.1); Creatinine Clr Calc Pharmacy 50.5 ml/min; Est GFR (African American) 47.3 ml/min; Est GFR (Non-African American) 40.8 ml/min; Potassium 4.4 mmol/L (3.5-5.1)
[2021-04-07] MEDS: traMADol HCL 50 MG TABLET PO PRN ×2 (07:42→16:46)
[2021-04-07] MEDS: FOLIC ACID 1 MG TAB PO SCH (08:49)
[2021-04-07] MEDS: dilTIAZem HCL 30 MG TAB PO SCH ×2 (08:50→20:37)
[2021-04-07] MEDS: FLUoxetine HCL 20 MG CAP PO SCH (08:50)
[2021-04-07] MEDS: lisinopril 20 MG TAB PO SCH (08:51)
[2021-04-07] MEDS: THIAMINE HCL 100 MG TAB PO SCH (08:51)
[2021-04-07] MEDS: dexAMETHasone 6 MG in SYRINGE 0 ML IV SCH (08:52)
[2021-04-07] MEDS: INSULIN ASPART 100 UNITS/ML 3 ML PEN SC SCH ×4 (08:58→21:33)
[2021-04-07] MEDS ORDERED: NovoLIN-N (NPH) PER UNIT CHARGE SQ ONE (09:00)
--- NOTE | 2021-04-07 10:04 | Orthopedic Progress Note ---
Date of Service April 07, 2021 Assessment & Plan (1) Neurogenic claudication due to lumbar spinal stenosis: Plan: This time continue physical therapy and plan for discharge to rehab when accepted. Admission and Anticipated Discharge Date Admission Date: April 01, 2021 Subjective Patient's back pain is well controlled. No leg pain. Physical Exam Physical Exam: Patient is in the chair at the bedside. Is comfortable. Is good strength testing. Results & Data ([facility]) Vital Signs (Past 12 Hours) Vital Signs Temp Pulse Pulse Resp BP BP Pulse Ox 04/07/21 08:48 77 147/81 H 04/07/21 07:24 36.4 C L 62 16 145/96 H 96 04/07/21 03:39 137/83 04/07/21 00:16 62 149/92 H 04/06/21 22:41 36.4 C L 76 16 226/135 H 215/136 H 97
--- NOTE | 2021-04-07 11:45 | Hospitalist Progress Note ---
Date of Service April 07, 2021 Assessment & Plan (1) S/P spinal surgery: Plan: Patient is a 65 yr male with H/O DM II, depression, HTN and other medical problems listed below who is POD#2 s/p revision decompression with bilateral medial facetectomy foraminotomies L2-3, L3-4, L4-5 and L5-S1 and posterior spinal fusion L3-4, L4-5 L5-S1 by Dr. Sol. S/P revision decompression with bilateral medial facetectomy foraminotomies L2- 3, L3-4, L4-5 and L5-S1 and posterior spinal fusion L3-4, L4-5 L5-S1 by Dr. Sol POD #6 Pain is controlled Wound care, anticoagulation and activity as per Ortho Continue incentive spirometry Continue PT/OT Continue bowel regimen Plan to discharge to Rehab facility when accepted (2) Acute worsening of stage 3 chronic kidney disease: Plan: Acute Kidney injury on CKD III Pre op Cr 1.75 Unclear baseline Cr:3.03>2.24>1.81>1.7 Received IV fluids Avoid nephrotoxic agents Monitor renal function (3) Acute blood loss as cause of postoperative anemia: Plan: EBL 350ml; KANG drain 630ml Pre op hgb 16.8 Hb stable monitor (4) UTI (urinary tract infection): Plan: UTI ruled out Rocephin discontinued (5) Hyponatremia: Plan: Pre-op sodium 136: ? Hemo concentration at that time ? 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 with repeat BMP in 1 week Continue fluid restriction (6) Diabetes mellitus, type 2: Plan: A1C, 8.5 Hold home agents SSI while in-patient Glycemic consult placed by primary service BSG AC HS (7) Hypertension: Plan: BP elevated Optimize pain control Continue diltiazem, lisinopril PRN Clonidine Likely alcohol withdrawal contributing (8) Alcohol use: Plan: Endorses 3-4 beers nightly, last drink yesterday evening No signs/sx of withdrawal Alcohol withdrawal precautions ordered, IV ativan PRN, at risk protocol On Gabapentin Protocol Continue folate, thiamine (9) Depression: Plan: Continue Prozac PCP: Dr. Hernandez ([place]) Dispo: Per orthopedic service Thank you for this consultation. We will follow the patient with you during their hospital stay. You can reach a member of the [facility] Hospitalist Team 01/03 via [place] Text @ "[facility] Hospitalist" role. Admission and Anticipated Discharge Date Admission Date: April 01, 2021 Subjective Patient is seen and examined at bedside Sitting in chair during my encounter Waiting for rehab placement Back pain is controlled Denies any chest pain, arousable, dizziness, nausea, abdominal pain Sodium 130 today Review of Systems Review of Systems: All systems reviewed & are unremarkable except as noted in Subjective Physical Exam Physical Exam: Physical Exam: Vitals signs as noted above General Appearance:Moderately built and nourished, no apparent distress Head: normocephalic, Atraumatic Eyes: normal inspection, EOMI Neck: supple, Trachea midline Respiratory/Chest: Normal breath sounds, CTA, No accessory muscle use Cardiovascular: S1, S2, No murmur Abdomen/GI:Soft, Non tender, Bowel sounds present Back: Surgical site in dressing Extremities/Musculoskeletal:normal inspection, no edema Neurologic/Psych:AAOX3, grossly no focal neurological deficits Skin: normal color, warm Results & Data Results & Data ([facility]) Vital Signs (Past 12 Hours) Vital Signs Temp Pulse Pulse Resp BP BP Pulse Ox 04/07/21 11:29 156/78 H 04/07/21 08:48 77 147/81 H 04/07/21 07:24 36.4 C L 62 16 145/96 H 96 04/07/21 03:39 137/83 04/07/21 00:16 62 149/92 H Laboratory Results BMP 04/07/21 05:43 Sodium 130 L Potassium 4.4 Chloride 102 Carbon Dioxide 25 BUN 40 H Creatinine 1.71 H Glucose 149 H Calcium 9.1
--- NOTE | 2021-04-07 14:57 | Pharmacy Report ---
Pharmacy Glycemic Short Note 2 - Date of Service April 07, 2021 - Glycemic Short BSG Results (Last 24 hours): 04/06/21 04/06/21 04/07/21 17:10 20:39 05:43 Glucose 149 H POC Glucose 192 H 177 H 04/07/21 04/07/21 07:56 12:03 Glucose POC Glucose 133 H 155 H OUTPATIENT ANTIDIABETIC REGIMEN: * Metformin 500 mg PO BIDM * Glipizide 2.5 mg PO BIDM * HbA1c = 8.9% (03/19/21) ASSESSMENT: 04/07: * Patient received 153 units of insulin yesterday, of which 48 units were Lantus and 50 units were NPH to help with covering steroids * Fasting BSG 133 mg/dL - steroids d/c this AM therefore discontinued AM basal and NPH * Lunch BSG 155 mg/dL - plan to continue same novolog for now * Will add small Lantus scale on for HS if BSGs trend upward 04/06: * Pt received total 134 units of insulin yesterday; 88 units basal (NPH= 40 + Lantus= 48) plus Novolog bolus = 46 units. * Fasting BSG today was elevated at 224 mg/dl. This is unusual from previous days. Will continue current dose of Lantus for now and re-assess tomorrow. If fasting continues to be elevated without reason, may need to increase Lantus dose. * Patient continues to be on IV Decadron in the AM. NPH insulin is used to cover the steroid induced hyperglycemia. Since BSG was above 200 yesterday at dinner and bedtime, NPH dose was increased today AM. * Novolog parameters continued the same today. 04/04: * Daniel received a total of 105 units of insulin yesterday * 70 units basal + 35 units bolus * BSGs were acceptable: [phone] mg/dL * Fasting BSG increased to 169 mg/dL this AM * Believe current Lantus dose is too low so will increased by 20% today * BSGs trended upward throughout the day yesterday. Dinner BSG of 184 mg/dL is indicative of an inadequate NPH dose to cover steroids. Patient will remain on IV dexamethasone 6 mg this AM so will increased NPH to 0.4 units/kg. 04/03: * Patient received a total of 81 units of insulin yesterday * 45 units basal + 36 units bolus * BSGs were acceptable: [phone] mg/dl * Did receive a 5 unit IV insulin bolus + 25 mL of D50 around midnight for hyperkalemia * Fasting BSG was well controlled at 129 mg/dL today * Will start a fix Lantus dose today of 40 units split BID * Patient was started on Dexamethasone 6 mg IV daily starting this AM * Will add 0.3 units/kg of NPH to cover steroids PLAN FOR INPATIENT GLYCEMIC CONTROL: * Hold outpatient oral diabetes medications * Basal insulin * Lantus 0-10 units HS based upon BSG * Bolus insulin - no change * NovoLog per scale ACHS or Q6hrs while NPO * Goal Range: Low 110 mg/dL - High 140 mg/dL * Correction Factor: 15 mg/dL/unit * Nutritional / Prandial insulin per carb ratio of 1 unit per 5 grams CHO consumed PLAN FOR DISCHARGE: * HbA1c from earlier this month was 8.9% which is above the goal of less than 7% based on this patient's age and comorbidities. * Recommend increasing Metformin by 500 mg per week until target dose of 1000 mg PO BID is achieved. * Recommend increasing Glipizide to 2.5 mg per week until dose of 5 mg PO BID is achieve. * Continue with lifestyle modifications as well.
[2021-04-07] MEDS: DOCUSATE SODIUM/SENNA 50/8.6MG TAB PO SCH (20:38)
[2021-04-07] MEDS ORDERED: INSULIN GLARGINE SOLOSTAR 100 UNITS/ML 3 ML PEN SC SCH (21:00)
[2021-04-07] MEDS ORDERED: amLODIPine BESYLATE 5 MG TAB PO SCH (21:00)
[2021-04-07] MEDS ORDERED: amLODIPine BESYLATE 5 MG TAB PO ONE ×2 (22:36→22:42)
[2021-04-08] MEDS: GABAPENTIN 600 MG TAB PO SCH ×2 (04:52→12:31)
[2021-04-08] MEDS: ACETAMINOPHEN 500 MG TAB PO PRN ×2 (06:01→13:57)
[2021-04-08 06:53] LABS: BUN Creatinine Ratio 23.5 (10-20); Creatinine Clr Calc Pharmacy 45.9 ml/min; Est GFR (African American) 42.2 ml/min; Est GFR (Non-African American) 36.4 ml/min; Magnesium 2.5 mg/dl (1.8-2.4); Potassium 4.3 mmol/L (3.5-5.1)
[2021-04-08] MEDS: dilTIAZem HCL 30 MG TAB PO SCH (07:59)
[2021-04-08] MEDS: FLUoxetine HCL 20 MG CAP PO SCH (07:59)
[2021-04-08] MEDS: lisinopril 20 MG TAB PO SCH (08:00)
[2021-04-08] MEDS: FOLIC ACID 1 MG TAB PO SCH (08:01)
[2021-04-08] MEDS: THIAMINE HCL 100 MG TAB PO SCH (08:01)
--- NOTE | 2021-04-08 08:09 | Orthopedic Progress Note ---
Date of Service April 08, 2021 Assessment & Plan (1) Neurogenic claudication due to lumbar spinal stenosis: Plan: This time awaiting placement for inpatient rehab. If this falls through we may have to consider home PT and home health with discharge tomorrow. Admission and Anticipated Discharge Date Admission Date: April 01, 2021 Subjective Back pain controlled leg pain improved Physical Exam Physical Exam: Patient is quite comfortable. Is eccentric to testing. Results & Data ([facility]) Vital Signs (Past 12 Hours) Vital Signs Temp Pulse Pulse Resp BP BP Pulse Ox 04/08/21 07:17 36.3 C L 65 16 183/93 H 96 04/08/21 03:25 56 L 156/94 H 04/08/21 01:04 154/101 H 04/07/21 22:29 36.4 C L 67 20 171/117 H 97 04/07/21 20:32 65 205/117 H 183/113 H
[2021-04-08] MEDS: INSULIN ASPART 100 UNITS/ML 3 ML PEN SC SCH ×2 (08:43→12:30)
--- NOTE | 2021-04-08 11:36 | Hospitalist Progress Note ---
Date of Service April 08, 2021 Assessment & Plan (1) S/P spinal surgery: Plan: Patient is a 65 yr male with H/O DM II, depression, HTN and other medical problems listed below who is POD#2 s/p revision decompression with bilateral medial facetectomy foraminotomies L2-3, L3-4, L4-5 and L5-S1 and posterior spinal fusion L3-4, L4-5 L5-S1 by Dr. Sol. S/P revision decompression with bilateral medial facetectomy foraminotomies L2- 3, L3-4, L4-5 and L5-S1 and posterior spinal fusion L3-4, L4-5 L5-S1 by Dr. Sol POD #7 Pain is controlled Wound care, anticoagulation and activity as per Ortho Continue incentive spirometry Continue PT/OT Continue bowel regimen Plan to discharged to Rehab facility today Needs follow-up with orthopedics upon discharge (2) Acute worsening of stage 3 chronic kidney disease: Plan: Acute Kidney injury on CKD III Pre op Cr 1.75 Unclear baseline Cr:3.03>2.24>1.8 Received IV fluids Avoid nephrotoxic agents Monitor renal function (3) Acute blood loss as cause of postoperative anemia: Plan: EBL 350ml; KANG drain 630ml Pre op hgb 16.8 Hb stable monitor (4) UTI (urinary tract infection): Plan: UTI ruled out Rocephin discontinued (5) Hyponatremia: Plan: Pre-op sodium 136: ? Hemo concentration at that time ? 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 (8) Alcohol use: Plan: Endorses 3-4 beers nightly, last drink yesterday evening No signs/sx of withdrawal Alcohol withdrawal precautions ordered, IV ativan PRN, at risk protocol On Gabapentin Protocol Continue folate, thiamine Counselled to quit drinking (9) Depression: Plan: Continue Prozac PCP: Dr. Hernandez ([place]) Dispo: Per orthopedic service Thank you for this consultation. We will follow the patient with you during their hospital stay. You can reach a member of the [facility] Hospitalist Team 01/03 via [place] Text @ "[facility] Hospitalist" role. Admission and Anticipated Discharge Date Admission Date: April 01, 2021 Subjective Patient is seen and examined at bedside States feeling well No new complaints Back pain improved Denies any chest pain, dyspnea, dizziness, nausea, abd pain Sodium 133 today Review of Systems Review of Systems: All systems reviewed & are unremarkable except as noted in Subjective Physical Exam Physical Exam: Physical Exam: Vitals signs as noted above General Appearance:Moderately built and nourished, no apparent distress Head: normocephalic, Atraumatic Eyes: normal inspection, EOMI Neck: supple, Trachea midline Respiratory/Chest: Normal breath sounds, CTA, No accessory muscle use Cardiovascular: S1, S2, No murmur Abdomen/GI:Soft, Non tender, Bowel sounds present Back: Surgical site in dressing Extremities/Musculoskeletal:normal inspection, no edema Neurologic/Psych:AAOX3, grossly no focal neurological deficits Skin: normal color, warm Results & Data Results & Data ([facility]) Vital Signs (Past 12 Hours) Vital Signs Temp Pulse Pulse Pulse Pulse Resp BP 04/08/21 10:28 36.3 C L 91 H 56 L 72 65 16 183/93 H 04/08/21 08:48 04/08/21 07:17 36.3 C L 65 16 183/93 H 04/08/21 03:25 56 L 156/94 H 04/08/21 01:04 154/101 H BP Pulse Ox 04/08/21 10:28 156/82 H 96 04/08/21 08:48 156/82 H 04/08/21 07:17 96 04/08/21 03:25 04/08/21 01:04 Laboratory Results BMP 04/08/21 05:29 Sodium 133 L Potassium 4.3 Chloride 102 Carbon Dioxide 27 BUN 44 H Creatinine 1.88 H Glucose 103 H Calcium 9.0
[2021-04-08] MEDS ORDERED: metFORMIN HCL 500 MG TAB PO SCH (12:00)
[2021-04-08] MEDS ORDERED: amLODIPine BESYLATE 5 MG TAB PO SCH (21:00)
[2021-04-09] MEDS ORDERED: GABAPENTIN 600 MG TAB PO SCH
[2021-04-10] MEDS ORDERED: GABAPENTIN 600 MG TAB PO SCH (12:00)
== END 2021-04-08 15:01 | DRG 454 ==
LOC: ASU 05:52 → 3E 10:05